=== PATIENT | male | born 1975 | race African-American/Black ===

== ENCOUNTER 2019-07-19 15:58 | Inpatient (IN) | payer BC ==
--- NOTE | 2019-07-19 16:26 | PDOC ---
Attending Attestation - Resident Resident Name: DaveRamon - ED Attending Attestation I have performed the following: I have examined & evaluated the patient, The case was reviewed & discussed with the resident, I agree w/resident's findings & plan, Exceptions are as noted - HPI HPI: 07/19/19 16:41 44y M hx of htn, hl, presents with a complaint of 3 days of worsening shortness of breath, orthopnea. Patient states that possibly 2 hours ago he is playing on his keyboard and developed shortness of breath and diaphoresis. Symptoms then resolved there was no associated chest pain. Patient also endorses feeling a little lightheaded at the time. Patient states that recently he has had been having more episodes and instances of shortness of breath with exertion. Patient states that he has stopped taking his medications for approximately 1 year as he was feeling okay. Patient denies any drug use, alcohol use. PMD:Dr. Marin No known cardiac history GENERAL: The patient is awake, alert, and fully oriented, Nontoxic - in no acute distress. HEAD: Normocephalic, atraumatic. EYES: extraocular movements intact, sclera anicteric, conjunctiva clear. ENT: Normal voice, Moist mucous membranes. NECK: Normal range of motion, supple LUNGS: Breath sounds equal, clear to auscultation bilaterally. No wheezes, no rhonchi, no rales. HEART: Regular rate and rhythm, normal S1 and S2 without murmur, rub or gallop. ABDOMEN: Soft, nontender, No guarding, no rebound. No CVA tenderness EXTREMITIES: Normal range of motion, no edema. NEUROLOGICAL: No facial assymetry, Normal speech, Moving all 4 extremities spontaneously and symmetrically PSYCH: Normal mood, normal affect. SKIN: Warm, Dry, normal turgor, Differential for the patient's symptoms includes CHF, consider ACS The patient's initial [id number] [address] elevations in V1 and V2, as well as ST depressions in V5 V6 and V2 -consider possible STEMI versus LV strain pattern , case was discussed with interventional cardiology at the [facility] if you are agreed this is likely a strain pattern. Will obtain a blood work, chest x-ray patient was placed on cardiac catheterization technologist Patient was given 20 mg of labetalol for blood pressure control Will reassess, anticipate admission for evaluation and work-up of hypertensive emergency - Physicial Exam PE: 07/19/19 17:39 see above - Critical Care Time Total Critical Care Time: 35 Critical Care Statement: The care of this patient involved high complexity decision making to prevent further life threatening deterioration of the patient 's condition and/or to evaluate & treat vital organ system(s) failure or risk of failure. - Medical Decision Making 07/19/19 17:38 pts abs reviewed bmp elev to 1500 trop at 0.09 cr at 2.0 bp improved to 213/161 will admit for further mangement of hypertensive emergency 07/19/19 17:57 The patient's chest x-ray noted for cardiomegaly however otherwise unremarkable We will admit the patient for further management Heart Score/ECG Review - ECG Impressions Comment:: 07/19/19 16:58 Twelve-lead EKG was performed and reviewed by me. There is normal sinus rhythm with a normal rate. rate of 112 1mm peter in V2 and V2, std in V5, V6, II No prior ekg for comparison
[2019-07-19] MEDS ORDERED: LABETALOL HCL 5 MG/1 ML (100MG/20 ML VIAL) IVPUSH ONE ×2 (16:28→18:54)
[2019-07-19] MEDS ORDERED: LABETALOL HCL 5 MG/1 ML (200MG/40ML VIAL) IVPB ONE (16:36)
[2019-07-19 16:45] LABS: BASO % 0.6 % (0-2.0); EOS % 1.6 % (0-4.5); HEMATOCRIT 47.7 % (35.4-49); HEMOGLOBIN 15.6 GM/dL (11.7-16.9); LYMPH % 21.2 % (8-40); MCH 27.9 pg (25.7-33.7); MCHC 32.7 g/dl (32.0-35.9); MEAN CELL VOLUME 85.4 fl (80-96); MEAN PLT VOLUME 7.5 fl (7.5-11.1); NEUT % 70.6 % (42.8-82.8); PLATELET COUNT 375 K/MM3 (134-434); RBC 5.59 M/mm3 (4.00-5.60); RDW 16.1 % (11.9-15.9); WHITE BLOOD COUNT 12.2 K/mm3 (4.0-10.0)
--- NOTE | 2019-07-19 16:47 | PDOC ---
History of Present Illness - General Chief Complaint: Shortness of Breath Stated Complaint: SOB Time Seen by Provider: 07/19/19 16:12 History Source: Patient Exam Limitations: No Limitations - History of Present Illness Initial Comments: 07/21/19 12:50 HPI: 44M PMH HTN c/o 3 days of LAWSON and SOB at rest. Worsened acutely yesterday night. Patient is currently asymptomatic. He did feel lightheaded earlier while playing the keyboard; denies palpitations or chest pain at that time. Sx self- resolved. No LOC, head strike. Denies f/c, n/v, cp/palpitations, changes in vision/hearing, lightheadedness/dizziness, headache. Pt has not taken anti-HTN meds for 1 year, has not seen PCP in a year. NKDA Past History - Past Medical History Allergies/Adverse Reactions: Allergies Allergy/AdvReac Type Severity Reaction Status Date / Time Penicillins Allergy Verified 07/21/19 06:13 Home Medications: Ambulatory Orders No Home Medications 0 dose .ROUTE UTDICT 08/28/12 COPD: No HTN: Yes - Psycho Social/Smoking Cessation Hx Smoking Status: No Smoking History: Never smoked Have you smoked in the past 12 months: No Number of Cigarettes Smoked Daily: 0 Hx Alcohol Use: No Drug/Substance Use Hx: No Review of Systems - Review of Systems Able to Perform ROS?: Yes Comments:: 07/21/19 12:50 ROS: CONSTITUTIONAL: Denies F / C HEENT: Denies headache, lightheadedness, dizziness, changes in vision / hearing , diplopia, blurry vision Denies sore throat, rhinorrhea. RESP: Endorses SOB/LAWSON/Orthopnea. Denies cough CARD: Denies chest pain, palpitations GI: Denies N / V / D, abdominal pain : Denies dysuria, frequency SKIN: Denies rashes NEURO: Denies numbness, tingling, weakness Is the patient limited Albanian proficient: No *Physical Exam - Vital Signs Last Vital Signs Temp Pulse Resp BP Pulse Ox 98.1 F 103 H 22 H 267/146 H 96 07/19/19 16:03 07/19/19 16:11 07/19/19 16:11 07/19/19 16:11 07/19/19 16:11 - Physical Exam Comments: 07/21/19 12:50 PE: VS - BP 250s/150 rpt -> 230s/150 GEN: NAD. AAOx3 HEENT: NC/AT. No facial asymmetry. Normal voice. Supple neck w/ FROM. CV: S1/S2, RRR, no m/r/g LUNG: CTAB, no wheezes, crackles, rales, rhonchi. GI: soft, ndnt, +BS, no guarding, no rebound. No masses. EXTREMITIES: 2+ distal pulses. No LE edema. No obvious deformities of all extremities. SKIN: warm, dry, normal turgor PSYCH: normal mood and affect NEURO: Moving all extremities well. ED Treatment Course - LABORATORY CBC & Chemistry Diagram: 07/21/19 06:00 07/21/19 06:00 Medical Decision Making - Critical Care Time Total Critical Care Time (minutes): 35 Critical Care Statement: The care of this patient involved high complexity decision making to prevent further life threatening deterioration of the patient 's condition and/or to evaluate & treat vital organ system(s) failure or risk of failure. - Medical Decision Making 07/19/19 16:40 MDM: 44M c/o lawson/sob/orthopnea x3 days. Very high pressures. DDx - ACS, CHF, COPD - CBC, CMP, Cardiac, Coags, BNP - EKG - CXR - lower BP 07/19/19 17:59 labs reviewed elevated Cr mildly elevated troponin elevated BNP CXR reviewed by ED team Admit for hypertensive emergency 07/19/19 18:[address] Jung pending placement ICU c/s 07/19/19 19:08 accepted by ICU ADMITTED ICU 07/19/19 22:04 Pt pressure lowered to 190s/120s s/p 20mg labetalol IVPUSH x2 Pressure has been reduced about 20% on IVPUSH medication Pt asymptomatic ED team discussed case w/ ICU team who was amenable to downgrading to Telemetry Plan was communicated to primary team who was amenable Discharge - Discharge Information Problems reviewed: Yes Clinical Impression/Diagnosis: Hypertensive emergency - Admission Yes - Follow up/Referral - Patient Discharge Instructions - Post Discharge Activity
[2019-07-19 16:56] LABS: INR 0.98 (0.83-1.09); PROTHROMBIN TIME (PATIENT) 11.6 SEC (9.7-13.0)
[2019-07-19 17:23] LABS: ALBUMIN 4.2 g/dl (3.4-5.0); BILIRUBIN,TOTAL 0.4 mg/dL (0.2-1); BLOOD UREA NITROGEN 18.2 mg/dL (7-18); CALCIUM 9.3 mg/dL (8.5-10.1); N-TERMINAL BNP 1401.2 pg/ml (5-125); POTASSIUM 3.5 mmol/L (3.5-5.1); TOT PROT 7.5 g/dl (6.4-8.2)
--- NOTE | 2019-07-19 19:27 | HP ---
CHIEF COMPLAINT: SOB PCP: HTN emergency HISTORY OF PRESENT ILLNESS: Mr. Novak is a 44 YOM, with a past medical hx of HTN and HLD, presenting to the ED with SOB and found to be hypertensive to 267/146. He first noticed it 3 days ago when he was having trouble laying flat and sleeping. He states it has been worsening over the past 3 days and that last night he couldn't lay flat at all. He has never experienced symptoms like this before. He states that nothing makes it better and only laying flat makes it worse. He has experienced lightheadedness twice, both time while sitting down, since the SOB began but denies any chest pain, heart palpitations, N/V, abdominal pain, diarrhea, constipation, syncope, headache, swelling of the UE/LE, skin changes, vision changes, changes in urinary frequency or volume. The pt was previously prescribed amlodipine 10 mg plus another BP med the patient cannot recall in addition to atorvastatin 10 mg daily for cholesterol, however the pt has not been back to his PCP in over 2 years and does not think he has taken any of his medications since 2015/ 2016 whenever they ran out. The pt states he has no reason for not visiting the doctor or refilling his medications other than hes just been busy with work. ER course was notable for: (1) EKG with sinus tachycardia and some PVCs, ST elevations in V1, V2, ST depressions V5, V6, ED sent EKG to [facility] cardiology who felt it was indicative of L heart strain. QTc 494 (2) Initial BP 267/146 Labetalol 20 IVpush x2 > BP 204/119 (3) Trop 0.09, BNP 1402.2, CK 446, BUN/Cr 18.2/2.0 Recent Travel: denies PAST MEDICAL HISTORY: HTN, HLD PAST SURGICAL HISTORY: denies Social History: Smoking: denies Alcohol: denies Drugs: denies Fhx: grandmother-stroke Occupation: air crew officer at [employer] , lives with and 2 kids Allergies No Known Allergies Allergy (Verified 07/19/19 16:01) HOME MEDICATIONS: Home Medications Medication Instructions Recorded No Home Medications 0 dose .ROUTE UTDICT 08/28/12 REVIEW OF SYSTEMS CONSTITUTIONAL: Absent: fever, chills, diaphoresis, generalized weakness, malaise, loss of appetite, weight change HEENT: Absent: rhinorrhea, nasal congestion, throat pain, throat swelling, difficulty swallowing, mouth swelling, ear pain, eye pain, visual changes CARDIOVASCULAR: Absent: chest pain, syncope, palpitations, irregular heart rate, lightheadedness , peripheral edema RESPIRATORY: shortness of breath, orthopnea Absent: cough, dyspnea with exertion, wheezing, stridor, hemoptysis GASTROINTESTINAL: Absent: abdominal pain, abdominal distension, nausea, vomiting, diarrhea, constipation, melena, hematochezia GENITOURINARY: Absent: dysuria, frequency, urgency, hesitancy, hematuria, flank pain, genital pain MUSCULOSKELETAL: Absent: myalgia, arthralgia, joint swelling, back pain, neck pain SKIN: Absent: rash, itching, pallor HEMATOLOGIC/IMMUNOLOGIC: Absent: easy bleeding, easy bruising, lymphadenopathy, frequent infections ENDOCRINE: Absent: unexplained weight gain, unexplained weight loss, heat intolerance, cold intolerance NEUROLOGIC: lightheaded Absent: headache, focal weakness or paresthesias, dizziness, unsteady gait, seizure, mental status changes, bladder or bowel incontinence PSYCHIATRIC: Absent: anxiety, depression, suicidal or homicidal ideation, hallucinations. PHYSICAL EXAMINATION Vital Signs - 24 hr 07/19/19 07/19/19 07/19/19 16:03 16:09 16:11 Temperature 98.1 F Pulse Rate 107 H 93 H Pulse Rate [ 103 H Right Radial] Respiratory 22 H 22 H Rate Blood Pressure 260/147 H Blood Pressure 267/146 H [Left Arm] O2 Sat by Pulse 96 99 96 Oximetry (%) 07/19/19 07/19/19 07/19/19 16:42 17:51 18:57 Temperature Pulse Rate Pulse Rate [ 93 H 89 93 H Right Radial] Respiratory 19 17 Rate Blood Pressure Blood Pressure 234/149 H 218/125 H 204/119 H [Left Arm] O2 Sat by Pulse 99 99 Oximetry (%) 07/19/19 19:24 Temperature Pulse Rate Pulse Rate [ 84 Right Radial] Respiratory 16 Rate Blood Pressure Blood Pressure 203/116 H [Left Arm] O2 Sat by Pulse Oximetry (%) GENERAL: Awake, alert, and fully oriented, in no acute distress, obese HEAD: Normal with no signs of trauma. EYES: Pupils equal, round and reactive to light, extraocular movements intact, sclera anicteric, conjunctiva clear. No lid lag. mild proptosis EARS, NOSE, THROAT: Ears normal, nares patent, oropharynx clear without exudates. Moist mucous membranes. NECK: Normal range of motion, supple without lymphadenopathy, JVD, or masses. LUNGS: Breath sounds equal, clear to auscultation bilaterally. No wheezes, and no crackles. No accessory muscle use. HEART: Regular rhythm, tachycardic, normal S1 and S2 without murmur, rub or gallop. ABDOMEN: Soft, nontender, not distended, normoactive bowel sounds, no guarding, no rebound, no masses. No hepatomegaly or splenomegaly. MUSCULOSKELETAL: Normal range of motion at all joints. No bony deformities or tenderness. No CVA tenderness. UPPER EXTREMITIES: 2+ pulses, warm, well-perfused. No cyanosis. No clubbing. No peripheral edema. LOWER EXTREMITIES: 2+ pulses, warm, well-perfused. No calf tenderness. 1+ peripheral edema. NEUROLOGICAL: Cranial nerves II-XII intact. Normal speech. PSYCHIATRIC: Cooperative. Good eye contact. Appropriate mood and affect. SKIN: Warm, dry, normal turgor, no rashes or lesions noted, normal capillary refill. Laboratory Results - last 24 hr 07/19/19 07/19/19 07/19/19 16:28 16:28 16:28 WBC 12.2 H RBC 5.59 Hgb 15.6 Hct 47.7 MCV 85.4 MCH 27.9 MCHC 32.7 RDW 16.1 H Plt Count 375 MPV 7.5 Absolute Neuts (auto) 8.7 H Neutrophils % 70.6 Lymphocytes % 21.2 Monocytes % 6.0 Eosinophils % 1.6 Basophils % 0.6 Nucleated RBC % 0 PT with INR INR Sodium 137 Potassium 3.5 Chloride 100 Carbon Dioxide 32 Anion Gap 5 L BUN 18.2 H Creatinine 2.0 H Est GFR (CKD-EPI)AfAm 45.37 Est GFR (CKD-EPI)NonAf 39.14 Random Glucose 102 Calcium 9.3 Total Bilirubin 0.4 AST 26 ALT 38 Alkaline Phosphatase 71 Creatine Kinase 446 H Creatine Kinase Index 0.7 CK-MB (CK-2) 3.2 Troponin I 0.09 H B-Natriuretic Peptide 1401.2 H Total Protein 7.5 Albumin 4.2 07/19/19 16:28 WBC RBC Hgb Hct MCV MCH MCHC RDW Plt Count MPV Absolute Neuts (auto) Neutrophils % Lymphocytes % Monocytes % Eosinophils % Basophils % Nucleated RBC % PT with INR 11.60 INR 0.98 Sodium Potassium Chloride Carbon Dioxide Anion Gap BUN Creatinine Est GFR (CKD-EPI)AfAm Est GFR (CKD-EPI)NonAf Random Glucose Calcium Total Bilirubin AST ALT Alkaline Phosphatase Creatine Kinase Creatine Kinase Index CK-MB (CK-2) Troponin I B-Natriuretic Peptide Total Protein Albumin ASSESSMENT/PLAN: Mr. Novak is a 44 YOM, with a past medical hx of HTN and HLD, presenting to the ED with SOB and found to be Hypertensive to 267/146 with evidence of renal dysfunction. # HTN emergency- pt with known hx of HTN and HLD not taking any of his home medications. EKG with evidence of L heart strain. Unclear as to what caused the pt to have HTN emergency. Pt has multiple risk factors for essential HTN including obesity, race, high Na diet (pt reports he eats fast food regularly) and low physical activity (pt denies doing any exercise). The pt denies having any other medical conditions however on physical exam he was found to be obese which could be a risk factor for sleep apnea , he was also noted to have some proptosis (which may be normal) but could indicate thyroid disease. These could be causes of secondary HTN leading to hypertensive emergency. - Nitro drip to reduce after-load given the pt has evidence of L heart strain on EKG and is endorsing orthopnea, goal to decrease BP by 25% in first 6h - UA - Renal u/s - Echo - trend troponins > if increasing or elevated then consider R/O ACS - urine lytes - counseled pt on importance of taking anti-HTN medications, HLD medications, and following up with appropriate doctors. # THEO- may be 2/2 severe HTN, no baseline for comparison - Nitro drip for BP control - f/u UA for evidence of microscopic hematuria - avoid renal toxins - renal lytes - renal u/s - accurate Is/Os - daily weights # Elevated troponin 0.09- most likely 2/2 severe HTN, pt without any CP or EKG findings suspicious for ACS at this time. # mild leukocytosis- pt is otherwise afebrile without evidence of infection at this time - trend CBC - monitor off ABX for now # FEN - PO fluids - replete PRN - Na controlled diet # PPx - Heparin 5000u SQ TID # Dispo - admit to ICU for BP management, likely can be downgraded tomorrow. Visit type - Emergency Visit Emergency Visit: Yes ED Registration Date: 07/19/19 Care time: The patient presented to the Emergency Department on the above date and was hospitalized for further evaluation of their emergent condition. - New Patient This patient is new to me today: Yes Date on this admission: 07/20/19 - Critical Care Critical Care patient: No ATTENDING PHYSICIAN STATEMENT I saw and evaluated the patient. I reviewed the resident's note and discussed the case with the resident. I agree with the resident's findings and plan as documented. SUBJECTIVE: OBJECTIVE: ASSESSMENT AND PLAN:
[2019-07-19] MEDS ORDERED: CHLORHEXIDINE GLUCONATE 4% CLEANSER FOR DECOLONIZATION TP SCH (22:00)
[2019-07-19] MEDS ORDERED: LABETALOL HCL 200 MG TABLET (FP) PO ONE (22:05)
[2019-07-19] MEDS ORDERED: NITROGLYCERIN 25MG/D5W 250ML 25 MG/250 ML ML IVPB SCH (23:45)
--- NOTE | 2019-07-20 04:28 | PN ---
Teaching Attending Note Name of Resident: Verona Trejo ATTENDING PHYSICIAN STATEMENT I saw and evaluated the patient. I reviewed the resident's note and discussed the case with the resident. I agree with the resident's findings and plan as documented. SUBJECTIVE: 44-year-old -Filipino man with a history of uncontrolled hypertension, off antihypertensive meds for the past 2 years because he has not been following with his PCP, presented to hospital complaining of shortness of breath for the past 3 days. Reports mild headache as well denied any chest pain , palpitations, vision changes. No changes in his urine habits reported. Upon initial presentation to emergency room was found to have a blood pressure of 260 /147. In the ER he was given 2 pushes of labetalol 20 mg IV and then given labetalol 200 mg p.o. was still having severe hypertension with systolic reading over 200 and so was started on nitro drip. OBJECTIVE: Last Vital Signs Temp Pulse Resp BP Pulse Ox 98.0 F 81 18 163/98 96 07/19/19 22:31 07/20/19 03:00 07/20/19 03:00 07/20/19 03:00 07/20/19 03:00 GENERAL: Well developed, well nourished. Obese HEENT: Normocephalic, atraumatic. PERRLA, EOMI. No conjunctival pallor. Sclera are non- icteric. Moist mucous membranes. Oropharynx is clear. NECK: Supple. Full ROM. No JVD. Carotid pulses 2+ and symmetric, without bruits. No thyromegaly. No lymphadenopathy. CARDIOVASCULAR: Regular rate and rhythm. No murmurs, rubs, or gallops. Distal pulses are 2+ and symmetric. PULMONARY: No evidence of respiratory distress. Lungs clear to auscultation bilaterally. No wheezing, rales or rhonchi. ABDOMINAL: Soft. Non-tender. Non-distended. No rebound or guarding. No organomegaly. Normoactive bowel sounds. MUSCULOSKELETAL Normal range of motion at all joints. No bony deformities or tenderness. No CVA tenderness. EXTREMITIES: 1+ pedal edema bilaterally in lower extremities SKIN: Warm and dry. Normal capillary refill. No rashes. No jaundice. PSYCHIATRIC: Cooperative. Good eye contact. Appropriate mood and affect. Abnormal Lab Results 07/19/19 07/19/19 07/19/19 16:28 16:28 16:28 WBC 12.2 H RDW 16.1 H Absolute Neuts (auto) 8.7 H Anion Gap 5 L BUN 18.2 H Creatinine 2.0 H Creatine Kinase 446 H Troponin I 0.09 H B-Natriuretic Peptide 1401.2 H Imaging reviewed ASSESSMENT AND PLAN: Critically ill 44-year-old man with hypertensive emergency with evidence of endorgan damage as creatinine is 2.0 and suggestive of a KI. No baseline creatinine value for comparison. Mild troponin leak likely secondary to severe hypertension but no chest pain and do not suspect ACS at this time chest x-ray was negative for any infiltrates and patient was saturating well on room air. Admit to ICU Nitroglycerin drip 2 g sodium diet Goal is to decrease blood pressure by 25% in first 6 hours Trend troponin If significant elevation in troponin would consider ACS Avoid renal toxins Renal lites UA Renal ultrasound Accurate I's and O's Daily weights Transthoracic echo Counseled patient on importance of taking antihypertensive medications at home and salt restriction Heparin subcutaneously for DVT prophylaxis #Leukocytosisno evidence of infection at this time Would trend CBC Monitor off antibiotics
[2019-07-20 05:55] LABS: EPI CELLS 0.6 /HPF (0-5/HPF); HYALINE CASTS 1 /lpf (0-8); URINE APPEARANCE CLEAR; URINE BACTERIA 0.2 /hpf (NEGATIVE); URINE BILIRUBIN NEGATIVE (NEGATIVE); URINE COLOR YELLOW; URINE GLUCOSE (UA) NEGATIVE (NEGATIVE); URINE KETONE NEGATIVE (NEGATIVE); URINE LEUK ESTERASE NEGATIVE (NEGATIVE); URINE NITRITE NEGATIVE (NEGATIVE); URINE PROTEIN 4+ (NEGATIVE); URINE RBC 2 /hpf (0-4); URINE UROBILINOGEN 0.2 mg/dL (0.2-1.0); URINE WBC 0 /hpf (0-5)
[2019-07-20 06:05] LABS: BASO % 0.7 % (0-2.0); EOS % 2.1 % (0-4.5); HEMATOCRIT 39.9 % (35.4-49); HEMOGLOBIN 13.3 GM/dL (11.7-16.9); LYMPH % 19.5 % (8-40); MCH 28.3 pg (25.7-33.7); MCHC 33.4 g/dl (32.0-35.9); MEAN CELL VOLUME 84.7 fl (80-96); MEAN PLT VOLUME 7.4 fl (7.5-11.1); MONO % 5.9 % (3.8-10.2); NEUT % 71.8 % (42.8-82.8); PLATELET COUNT 327 K/MM3 (134-434); RBC 4.71 M/mm3 (4.00-5.60); RDW 15.9 % (11.9-15.9); WHITE BLOOD COUNT 9.2 K/mm3 (4.0-10.0)
[2019-07-20] MEDS ORDERED: HEPARIN NA (PORCINE) 5,000 UNITS/ML 1ML VIAL ONE ×2 (06:37→14:08)
[2019-07-20 06:38] LABS: ALBUMIN 3.4 g/dl (3.4-5.0); BILIRUBIN,TOTAL 0.6 mg/dL (0.2-1); BLOOD UREA NITROGEN 18.6 mg/dL (7-18); CALCIUM 8.9 mg/dL (8.5-10.1); MAGNESIUM 2.2 mg/dL (1.8-2.4); PHOSPHOROUS 4.4 mg/dL (2.5-4.9); POTASSIUM 3.6 mmol/L (3.5-5.1); TOT PROT 6.1 g/dl (6.4-8.2)
[2019-07-20] MEDS: MUPIROCIN 2% TOPICAL OINTMENT FOR DECOLONIZATION NS SCH ×2 (06:42→10:12)
[2019-07-20] MEDS: HEPARIN NA (PORCINE) 5,000 UNITS/ML 1ML VIAL SQ SCH ×3 (06:43→23:03)
[2019-07-20] MEDS ORDERED: LABETALOL HCL 200 MG TABLET (FP) PO SCH (10:00)
--- NOTE | 2019-07-20 10:06 | EKG ---
Test Reason : Blood Pressure : / mmHG Vent. Rate : 108 BPM Atrial Rate : 108 BPM P-R Int : 142 ms QRS Dur : 092 ms QT Int : 368 ms P-R-T Axes : 043 008 230 degrees QTc Int : 493 ms SINUS TACHYCARDIA POSSIBLE LEFT ATRIAL ENLARGEMENT ABNORMAL ECG NO PREVIOUS ECGS AVAILABLE Confirmed by MYRTLE MARSHALL MD ([id number]) on 07/20/2019 10:05:57 AM Referred By: Confirmed By:MYRTLE MARSHALL MD
--- NOTE | 2019-07-20 10:06 | EKG ---
Test Reason : Blood Pressure : / mmHG Vent. Rate : 112 BPM Atrial Rate : 112 BPM P-R Int : 138 ms QRS Dur : 096 ms QT Int : 362 ms P-R-T Axes : 055 022 242 degrees QTc Int : 494 ms SINUS TACHYCARDIA WITH OCCASIONAL PREMATURE ATRIAL COMPLEXES BIATRIAL ENLARGEMENT ABNORMAL ECG NO PREVIOUS ECGS AVAILABLE Confirmed by JOANNA FINE, MYRTLE ([id number]) on 07/20/2019 10:06:19 AM Referred By: Confirmed By:MYRTLE MARSHALL MD
[2019-07-20] MEDS ORDERED: LABETALOL HCL 5 MG/1 ML (100MG/20 ML VIAL) IVPUSH PRN ×2 (10:23→20:54)
--- NOTE | 2019-07-20 10:27 | CON.CARD ---
Consult Consult Specialty:: Cardiology Referred by:: Dr. Darnell Reason for Consultation:: Cardiac evaluation - History of Present Illness Chief Complaint: Shortness of breath History of Present Illness: Patient is a 44 year old male with underlying history of HTN and hypercholesterolemia who presented to ED with increasing shortness of breath for the past few days and was found to be hypertensive to 267/146 mmHg. He denies chest pain or palpitations. He denies paroxysmal nocturnal dyspnea or orthopnea. He denies fever or chills. He denies nausea, vomiting, diarrhea or abdominal pain. He denies headache or lightheadedness. He had stopped taking blood pressure medication and statin 2 years ago. He has been noncompliant with MD follow up. He is an [employer] officer. - History Source History Provided By: Patient, Medical Record Limitations to Obtaining History: No Limitations - Past Medical History Cardio/Vascular: Yes: HTN, Hyperlipdemia Pulmonary: No: Asthma, COPD Endocrine: No: Diabetes Mellitus - Past Surgical History Past Surgical History: Yes: None - Alcohol/Substance Use Hx Alcohol Use: No - Smoking History Smoking history: Never smoked Have you smoked in the past 12 months: No Aproximately how many cigarettes per day: 0 Home Medications - Allergies Allergies/Adverse Reactions: Allergies Allergy/AdvReac Type Severity Reaction Status Date / Time No Known Allergies Allergy Verified 07/19/19 16:01 - Home Medications Home Medications: Ambulatory Orders No Home Medications 0 dose .ROUTE UTDICT 08/28/12 Family Medical History Family Hx Cardiac Disorders: Mother (HTN) Review of Systems - Review of Systems Constitutional: denies: Chills, Fever Cardiovascular: reports: Shortness of Breath. denies: Chest Pain, Palpitations Respiratory: reports: SOB, SOB on Exertion. denies: Cough, Hemoptysis, Orthopnea, PND, Wheezing Gastrointestinal: denies: Abdominal Pain, Constipation, Diarrhea, Melena, Nausea , Rectal Bleeding, Vomiting Genitourinary: denies: Dysuria, Hematuria Musculoskeletal: denies: Back Pain, Joint Pain Neurological: denies: Dizziness, Headache, Seizure, Syncope Vital Signs: Vital Signs Temperature 98.1 F 07/20/19 07:12 Pulse Rate 83 07/20/19 10:00 Respiratory Rate 20 07/20/19 10:00 Blood Pressure 175/99 H 07/20/19 10:00 O2 Sat by Pulse Oximetry (%) 98 07/20/19 10:00 Eyes: Yes: PERRL HENT: Yes: Atraumatic Neck: Yes: Supple Respiratory: Yes: CTA Bilaterally Gastrointestinal: Yes: Normal Bowel Sounds, Soft. No: Tenderness Cardiovascular: Yes: Regular Rate and Rhythm JVD: No PMI: Non-Displaced Heart Sounds: Yes: S1, S2 Murmur: No: Systolic Murmur, Diastolic Murmur Edema: No - Other Data Labs, Other Data: CBC, BMP 07/20/19 05:30 07/20/19 05:30 INR, PTT INR 0.98 (0.83-1.09) 07/19/19 16:28 Troponin, BNP 07/19/19 07/19/19 07/20/19 16:28 16:28 05:30 Troponin I 0.09 H 0.06 H B-Natriuretic Peptide 1401.2 H Laboratory Results - last 24 hr 07/19/19 07/19/19 07/19/19 16:28 16:28 16:28 WBC 12.2 H RBC 5.59 Hgb 15.6 Hct 47.7 MCV 85.4 MCH 27.9 MCHC 32.7 RDW 16.1 H Plt Count 375 MPV 7.5 Absolute Neuts (auto) 8.7 H Neutrophils % 70.6 Lymphocytes % 21.2 Monocytes % 6.0 Eosinophils % 1.6 Basophils % 0.6 Nucleated RBC % 0 PT with INR INR Sodium 137 Potassium 3.5 Chloride 100 Carbon Dioxide 32 Anion Gap 5 L BUN 18.2 H Creatinine 2.0 H Est GFR (CKD-EPI)AfAm 45.37 Est GFR (CKD-EPI)NonAf 39.14 Random Glucose 102 Hemoglobin A1c % Serum Osmolality Calcium 9.3 Phosphorus Magnesium Total Bilirubin 0.4 AST 26 ALT 38 Alkaline Phosphatase 71 Creatine Kinase 446 H Creatine Kinase Index 0.7 CK-MB (CK-2) 3.2 Troponin I 0.09 H B-Natriuretic Peptide 1401.2 H Total Protein 7.5 Albumin 4.2 TSH Urine Color Urine Appearance Urine pH Ur Specific [place] Urine Protein Urine Glucose (UA) Urine Ketones Urine Blood Urine Nitrite Urine Bilirubin Urine Urobilinogen Ur Leukocyte Esterase Urine WBC (Auto) Urine RBC (Auto) Urine Casts (Auto) U Epithel Cells (Auto) Urine Bacteria (Auto) Urine Osmolality Ur Random Creatinine Ur Random Sodium Ur Random Potassium Ur Random Chloride 11/17/19 11/18/19 11/18/19 16:28 05:30 05:30 WBC 9.2 RBC 4.71 Hgb 13.3 Hct 39.9 D MCV 84.7 MCH 28.3 MCHC 33.4 RDW 15.9 Plt Count 327 MPV 7.4 L Absolute Neuts (auto) 6.6 Neutrophils % 71.8 Lymphocytes % 19.5 Monocytes % 5.9 Eosinophils % 2.1 Basophils % 0.7 Nucleated RBC % 0 PT with INR 11.60 INR 0.98 Sodium 140 Potassium 3.6 Chloride 102 Carbon Dioxide 33 H Anion Gap 5 L BUN 18.6 H Creatinine 2.0 H Est GFR (CKD-EPI)AfAm 45.37 Est GFR (CKD-EPI)NonAf 39.14 Random Glucose 118 H Hemoglobin A1c % Serum Osmolality Calcium 8.9 Phosphorus 4.4 Magnesium 2.2 Total Bilirubin 0.6 AST 21 ALT 34 Alkaline Phosphatase 51 Creatine Kinase Creatine Kinase Index CK-MB (CK-2) Troponin I 0.06 H B-Natriuretic Peptide Total Protein 6.1 L Albumin 3.4 TSH 3.53 Urine Color Urine Appearance Urine pH Ur Specific [place] Urine Protein Urine Glucose (UA) Urine Ketones Urine Blood Urine Nitrite Urine Bilirubin Urine Urobilinogen Ur Leukocyte Esterase Urine WBC (Auto) Urine RBC (Auto) Urine Casts (Auto) U Epithel Cells (Auto) Urine Bacteria (Auto) Urine Osmolality Ur Random Creatinine Ur Random Sodium Ur Random Potassium Ur Random Chloride 07/20/19 07/20/19 07/20/19 05:40 05:40 05:40 WBC RBC Hgb Hct MCV MCH MCHC RDW Plt Count MPV Absolute Neuts (auto) Neutrophils % Lymphocytes % Monocytes % Eosinophils % Basophils % Nucleated RBC % PT with INR INR Sodium Potassium Chloride Carbon Dioxide Anion Gap BUN Creatinine Est GFR (CKD-EPI)AfAm Est GFR (CKD-EPI)NonAf Random Glucose Hemoglobin A1c % Serum Osmolality 296 Calcium Phosphorus Magnesium Total Bilirubin AST ALT Alkaline Phosphatase Creatine Kinase Creatine Kinase Index CK-MB (CK-2) Troponin I B-Natriuretic Peptide Total Protein Albumin TSH Urine Color Yellow Urine Appearance Clear Urine pH 6.0 Ur Specific [place] 1.020 Urine Protein 4+ H Urine Glucose (UA) Negative Urine Ketones Negative Urine Blood Negative Urine Nitrite Negative Urine Bilirubin Negative Urine Urobilinogen 0.2 Ur Leukocyte Esterase Negative Urine WBC (Auto) 0 Urine RBC (Auto) 2 Urine Casts (Auto) 1 U Epithel Cells (Auto) 0.6 Urine Bacteria (Auto) 0.2 Urine Osmolality 556 Ur Random Creatinine Ur Random Sodium Ur Random Potassium Ur Random Chloride Sinus tachycardia with biatrial enlargement Echo: Pending Imaging - Results Chest X-ray: Report Reviewed (Unremarkable) EKG: Report Reviewed Problem List - Problems (1) Hypertensive emergency Code(s): I16.1 - HYPERTENSIVE EMERGENCY (2) Shortness of breath Code(s): R06.02 - SHORTNESS OF BREATH (3) Hypercholesterolemia Code(s): E78.00 - PURE HYPERCHOLESTEROLEMIA, UNSPECIFIED (4) Noncompliance Code(s): Z91.19 - PATIENT'S NONCOMPLIANCE W OTH MEDICAL TREATMENT AND REGIMEN Assessment/Plan 1. HTN emergency 2. Hypercholesterolemia 3. Noncompliance 4. Acute on CKD PLAN: 1. Labetalol 200 mg BID or TID uptitrate as needed and as tolerated 2. Continue IV NTG for now 3. Consider Procardia XL if tolerated or other option is to use Hydralazine 4. Echocardiography to assess LV/RV and valvular function 5. Continue Atorvastatin 10 mg QHS and check fasting lipid panel 6. Monitor renal function and electrolytes Further plans are to follow Quique Palacios MD
[2019-07-20] MEDS ORDERED: NIFEdipine E.R 60 MG TABLET (UD) PO SCH (11:00)
[2019-07-20] MEDS ORDERED: NIFEdipine E.R. 30 MG TABLET (FP) ONE (11:04)
--- NOTE | 2019-07-20 11:38 | CONSULT ---
Consultation: REQUESTING PROVIDER: Dr. Darnell CONSULT SERVICE: Nephrology HISTORY OF PRESENT ILLNESS: Patient is a 44 year old male with history of hypertension, hyperlipidemia not on any medications for past two years presents with complaint of shortness of breath, Patient endorses acute onset of orthopnea, paroxysmal nocturnal dyspnea ongoing for past three days. Patient states these symptoms have not occurred in the past. Denies palliative features. Denies recent sick contacts, subjective fevers, chills, syncope, chest pain, palpitations, abdominal pain, nausea, vomiting. he denies any prior history of asthma/ COPD, does not use any inhalers / bronchodilators. Denies using home oxygen. Denies recent diuretics, antibiotics, MADAI/ ARBs, or NSAIDs. Patient admits that he has not followed up with a primary care physician for the past two years. In ED patient was found to be hypertensive to 260s/ 140s; started on Nitro drip. Chest radiograph without infiltrate, or congestive changes. BUN/ Cr 18.6/ 2.0 without prior available values. Past medical history: hypertension, hyperlipidemia Past surgical history: denies Family history Mother: hypertension Father: denies Medications: formerly took amlodipine, atorvastatin, however no recent medications Allergies: NKDA Social: Lives with adn children. 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 Patient denies smoking cigarettes, alcohol consumption, illicit drug use. REVIEW OF SYSTEMS: CONSTITUTIONAL: Absent: fever, chills, diaphoresis, generalized weakness, malaise, loss of appetite, weight change HEENT: Absent: rhinorrhea, nasal congestion, throat pain, throat swelling, difficulty swallowing, mouth swelling, ear pain, eye pain, visual changes CARDIOVASCULAR: Absent: chest pain, syncope, palpitations, irregular heart rate, lightheadedness , peripheral edema RESPIRATORY: Admits: shortness of breath, orthopnea. Absent: cough, dyspnea with exertion, wheezing, stridor, hemoptysis GASTROINTESTINAL: Absent: abdominal pain, abdominal distension, nausea, vomiting, diarrhea, constipation, melena, hematochezia GENITOURINARY: Absent: dysuria, frequency, urgency, hesitancy, hematuria, flank pain, genital pain MUSCULOSKELETAL: Absent: myalgia, arthralgia, joint swelling, back pain, neck pain SKIN: Absent: rash, itching, pallor HEMATOLOGIC/IMMUNOLOGIC: Absent: easy bleeding, easy bruising, lymphadenopathy, frequent infections ENDOCRINE: Absent: unexplained weight gain, unexplained weight loss, heat intolerance, cold intolerance NEUROLOGIC: Absent: headache, focal weakness or paresthesias, dizziness, unsteady gait, seizure, mental status changes, bladder or bowel incontinence PSYCHIATRIC: Absent: anxiety, depression, suicidal or homicidal ideation, hallucinations. PHYSICAL EXAMINATION Vital Signs - 24 hr 07/19/19 07/19/19 07/19/19 16:03 16:09 16:11 Temperature 98.1 F Pulse Rate 107 H 93 H Pulse Rate [ 103 H Right Radial] Respiratory 22 H 22 H Rate Blood Pressure 260/147 H Blood Pressure 267/146 H [Left Arm] O2 Sat by Pulse 96 99 96 Oximetry (%) 07/19/19 07/19/19 07/19/19 16:42 17:51 18:57 Temperature Pulse Rate Pulse Rate [ 93 H 89 93 H Right Radial] Respiratory 19 17 Rate Blood Pressure Blood Pressure 234/149 H 218/125 H 204/119 H [Left Arm] O2 Sat by Pulse 99 99 Oximetry (%) 07/19/19 07/19/19 07/19/19 19:24 20:44 22:31 Temperature 98.0 F Pulse Rate Pulse Rate [ 84 82 93 H Right Radial] Respiratory 16 20 18 Rate Blood Pressure Blood Pressure 203/116 H 190/125 H 222/146 H [Left Arm] O2 Sat by Pulse 99 96 Oximetry (%) 07/20/19 07/20/19 07/20/19 02:00 03:00 05:49 Temperature Pulse Rate Pulse Rate [ 74 81 89 Right Radial] Respiratory 21 H 18 18 Rate Blood Pressure Blood Pressure 163/100 163/98 174/106 H [Left Arm] O2 Sat by Pulse 96 96 95 Oximetry (%) 07/20/19 07/20/19 07/20/19 07:01 07:05 07:12 Temperature 98.1 F Pulse Rate Pulse Rate [ 84 86 Right Radial] Respiratory 19 Rate Blood Pressure Blood Pressure 154/91 154/94 [Left Arm] O2 Sat by Pulse 98 99 Oximetry (%) 07/20/19 07/20/19 07/20/19 10:00 10:31 11:00 Temperature Pulse Rate Pulse Rate [ 83 78 84 Right Radial] Respiratory 20 26 H 18 Rate Blood Pressure Blood Pressure 175/99 H 168/106 H 160/97 [Left Arm] O2 Sat by Pulse 98 94 L 97 Oximetry (%) GENERAL: Awake, alert, and fully oriented, in no acute distress. HEENT: NC/AT. PERRL, EOMI. Moist mucous membranes. LUNGS: Clear to auscultation bilaterally. No wheezes, and no crackles. No accessory muscle use. HEART: Regular rate and rhythm, normal S1 and S2 without murmur, rub or gallop. ABDOMEN: Soft, nontender, not distended, normoactive bowel sounds, no guarding, no rebound, no masses. No hepatomegaly or splenomegaly. EXTREMITIES: 2+ pulses bilaterally, warm, well-perfused. No peripheral edema. NEUROLOGICAL: Cranial nerves II-XII intact. No gross focal defecits SKIN: Warm, dry. Laboratory Results - last 24 hr 07/19/19 07/19/19 07/19/19 16:28 16:28 16:28 WBC 12.2 H RBC 5.59 Hgb 15.6 Hct 47.7 MCV 85.4 MCH 27.9 MCHC 32.7 RDW 16.1 H Plt Count 375 MPV 7.5 Absolute Neuts (auto) 8.7 H Neutrophils % 70.6 Lymphocytes % 21.2 Monocytes % 6.0 Eosinophils % 1.6 Basophils % 0.6 Nucleated RBC % 0 PT with INR INR Sodium 137 Potassium 3.5 Chloride 100 Carbon Dioxide 32 Anion Gap 5 L BUN 18.2 H Creatinine 2.0 H Est GFR (CKD-EPI)AfAm 45.37 Est GFR (CKD-EPI)NonAf 39.14 Random Glucose 102 Hemoglobin A1c % Serum Osmolality Calcium 9.3 Phosphorus Magnesium Total Bilirubin 0.4 AST 26 ALT 38 Alkaline Phosphatase 71 Creatine Kinase 446 H Creatine Kinase Index 0.7 CK-MB (CK-2) 3.2 Troponin I 0.09 H B-Natriuretic Peptide 1401.2 H Total Protein 7.5 Albumin 4.2 TSH Urine Color Urine Appearance Urine pH Ur Specific [place] Urine Protein Urine Glucose (UA) Urine Ketones Urine Blood Urine Nitrite Urine Bilirubin Urine Urobilinogen Ur Leukocyte Esterase Urine WBC (Auto) Urine RBC (Auto) Urine Casts (Auto) U Epithel Cells (Auto) Urine Bacteria (Auto) Urine Osmolality Ur Random Creatinine Ur Random Sodium Ur Random Potassium Ur Random Chloride 07/19/19 07/20/19 07/20/19 16:28 05:30 05:30 WBC 9.2 RBC 4.71 Hgb 13.3 Hct 39.9 D MCV 84.7 MCH 28.3 MCHC 33.4 RDW 15.9 Plt Count 327 MPV 7.4 L Absolute Neuts (auto) 6.6 Neutrophils % 71.8 Lymphocytes % 19.5 Monocytes % 5.9 Eosinophils % 2.1 Basophils % 0.7 Nucleated RBC % 0 PT with INR 11.60 INR 0.98 Sodium 140 Potassium 3.6 Chloride 102 Carbon Dioxide 33 H Anion Gap 5 L BUN 18.6 H Creatinine 2.0 H Est GFR (CKD-EPI)AfAm 45.37 Est GFR (CKD-EPI)NonAf 39.14 Random Glucose 118 H Hemoglobin A1c % Serum Osmolality Calcium 8.9 Phosphorus 4.4 Magnesium 2.2 Total Bilirubin 0.6 AST 21 ALT 34 Alkaline Phosphatase 51 Creatine Kinase Creatine Kinase Index CK-MB (CK-2) Troponin I 0.06 H B-Natriuretic Peptide Total Protein 6.1 L Albumin 3.4 TSH 3.53 Urine Color Urine Appearance Urine pH Ur Specific [place] Urine Protein Urine Glucose (UA) Urine Ketones Urine Blood Urine Nitrite Urine Bilirubin Urine Urobilinogen Ur Leukocyte Esterase Urine WBC (Auto) Urine RBC (Auto) Urine Casts (Auto) U Epithel Cells (Auto) Urine Bacteria (Auto) Urine Osmolality Ur Random Creatinine Ur Random Sodium Ur Random Potassium Ur Random Chloride 07/20/19 07/20/19 07/20/19 05:30 05:40 05:40 WBC RBC Hgb Hct MCV MCH MCHC RDW Plt Count MPV Absolute Neuts (auto) Neutrophils % Lymphocytes % Monocytes % Eosinophils % Basophils % Nucleated RBC % PT with INR INR Sodium Potassium Chloride Carbon Dioxide Anion Gap BUN Creatinine Est GFR (CKD-EPI)AfAm Est GFR (CKD-EPI)NonAf Random Glucose Hemoglobin A1c % 6.0 Serum Osmolality Calcium Phosphorus Magnesium Total Bilirubin AST ALT Alkaline Phosphatase Creatine Kinase Creatine Kinase Index CK-MB (CK-2) Troponin I B-Natriuretic Peptide Total Protein Albumin TSH Urine Color Urine Appearance Urine pH Ur Specific [place] Urine Protein Urine Glucose (UA) Urine Ketones Urine Blood Urine Nitrite Urine Bilirubin Urine Urobilinogen Ur Leukocyte Esterase Urine WBC (Auto) Urine RBC (Auto) Urine Casts (Auto) U Epithel Cells (Auto) Urine Bacteria (Auto) Urine Osmolality Ur Random Creatinine 181.0 H Ur Random Sodium 59 Ur Random Potassium 52.0 Ur Random Chloride 68 L 07/20/19 07/20/19 07/20/19 05:40 05:40 05:40 WBC RBC Hgb Hct MCV MCH MCHC RDW Plt Count MPV Absolute Neuts (auto) Neutrophils % Lymphocytes % Monocytes % Eosinophils % Basophils % Nucleated RBC % PT with INR INR Sodium Potassium Chloride Carbon Dioxide Anion Gap BUN Creatinine Est GFR (CKD-EPI)AfAm Est GFR (CKD-EPI)NonAf Random Glucose Hemoglobin A1c % Serum Osmolality 296 Calcium Phosphorus Magnesium Total Bilirubin AST ALT Alkaline Phosphatase Creatine Kinase Creatine Kinase Index CK-MB (CK-2) Troponin I B-Natriuretic Peptide Total Protein Albumin TSH Urine Color Yellow Urine Appearance Clear Urine pH 6.0 Ur Specific [place] 1.020 Urine Protein 4+ H Urine Glucose (UA) Negative Urine Ketones Negative Urine Blood Negative Urine Nitrite Negative Urine Bilirubin Negative Urine Urobilinogen 0.2 Ur Leukocyte Esterase Negative Urine WBC (Auto) 0 Urine RBC (Auto) 2 Urine Casts (Auto) 1 U Epithel Cells (Auto) 0.6 Urine Bacteria (Auto) 0.2 Urine Osmolality 556 Ur Random Creatinine Ur Random Sodium Ur Random Potassium Ur Random Chloride Active Medications Generic Name Dose Route Start Last Admin Trade Name Freq PRN Reason Stop Dose Admin Chlorhexidine Gluconate 1 applic 07/19/19 22:00 07/20/19 06:43 Hibiclens For Decolonization - TP Not Given HS [facility] Heparin Sodium (Porcine) 5,000 unit 07/20/19 06:00 07/20/19 06:43 Heparin - SQ 5,000 unit TID [facility] Administration Labetalol HCl 200 mg 07/20/19 10:00 07/20/19 10:12 Normodyne - PO 200 mg BID ANABELLA Administration Labetalol HCl 10 mg 07/20/19 10:23 Normodyne Injection - IVPUSH Q4H PRN HYPERTENSION Mupirocin 1 applic 07/19/19 22:00 07/20/19 10:12 Bactroban Ointment (For Decolonization) - NS 07/24/19 21:59 Not Given BID [facility] Nifedipine 60 mg 07/20/19 11:00 Procardia Xl - PO DAILY [facility] ASSESSMENT/PLAN: Patient is a 44 year old male with history of hypertension, hyperlipidemia not on any medications for past two years presents with complaint of shortness of breath ongoing for past three days. Hypertensive emergency -Blood pressure decreasing since initiation of Nitro drip. Switched to Labetalol, Nifedipine. -Close monitoring of BP to prevent rebound hypertension. -Troponinemia likely demand, secondary to hypertension. Trend to peak. Cardiolgy recommendations appreciated. Acute kidney injury (on CKD) -THEO likely secondary to poorly controlled blood pressure, in setting of medication and BP noncompliance. -Will obtain records from patient primary care provider to clarify baseline renal function. -Follow renal US -Urine electrolytes to calculate FeNa, protein: creatinine. Disposition: We will continue to follow the patient. Thank you for this consultative opportunity. Visit type - Emergency Visit Emergency Visit: Yes ED Registration Date: 07/19/19 Care time: The patient presented to the Emergency Department on the above date and was hospitalized for further evaluation of their emergent condition. - New Patient This patient is new to me today: Yes Date on this admission: 07/20/19 - Critical Care Critical Care patient: No ATTENDING PHYSICIAN STATEMENT I saw and evaluated the patient. I reviewed the resident's note and discussed the case with the resident. I agree with the resident's findings and plan as documented. SUBJECTIVE: OBJECTIVE: ASSESSMENT AND PLAN:
--- NOTE | 2019-07-20 13:48 | CONSULT ---
Consultation: REQUESTING PROVIDER: Dr. Darnell CONSULT REQUEST: We have been asked to medically evaluate this patient for Hypertensive Emergency. HISTORY OF PRESENT ILLNESS: Pt. is a 44 y.o. M w/ PMHx. of HTN and HLD presents with 3 days of worsening shortness of breath. Pt. states that the shortness of breath happens at day and at night, and that he was unable to lie flat. Pt. states that he was told in the past that he had high blood pressure and was started on medications that he does not recall now. Per chart review these medications were Norvasc and Atorvastatin. Pt. states that the last time he saw his PCP was 2 years ago and that he has not other follow up since. Pt. endorses family history of HTN but denies any other chronic medical conditions. Pt. denies any surgeries in the past. Pt. endorses headache that started after starting a medication here in the ER and was told that it was a potential side effect of the medication. Pt. denies any chest pain, blurry vision, abdominal pain or numbness tingling in the extremities. REVIEW OF SYSTEMS: As above PHYSICAL EXAMINATION Vital Signs - 24 hr 07/19/19 07/19/19 07/19/19 16:03 16:09 16:11 Temperature 98.1 F Pulse Rate 107 H 93 H Pulse Rate [ 103 H Right Radial] Respiratory 22 H 22 H Rate Blood Pressure 260/147 H Blood Pressure 267/146 H [Left Arm] O2 Sat by Pulse 96 99 96 Oximetry (%) 07/19/19 07/19/19 07/19/19 16:42 17:51 18:57 Temperature Pulse Rate Pulse Rate [ 93 H 89 93 H Right Radial] Respiratory 19 17 Rate Blood Pressure Blood Pressure 234/149 H 218/125 H 204/119 H [Left Arm] O2 Sat by Pulse 99 99 Oximetry (%) 07/19/19 07/19/19 07/19/19 19:24 20:44 22:31 Temperature 98.0 F Pulse Rate Pulse Rate [ 84 82 93 H Right Radial] Respiratory 16 20 18 Rate Blood Pressure Blood Pressure 203/116 H 190/125 H 222/146 H [Left Arm] O2 Sat by Pulse 99 96 Oximetry (%) 07/20/19 07/20/19 07/20/19 02:00 03:00 05:49 Temperature Pulse Rate Pulse Rate [ 74 81 89 Right Radial] Respiratory 21 H 18 18 Rate Blood Pressure Blood Pressure 163/100 163/98 174/106 H [Left Arm] O2 Sat by Pulse 96 96 95 Oximetry (%) 07/20/19 07/20/19 07/20/19 07:01 07:05 07:12 Temperature 98.1 F Pulse Rate Pulse Rate [ 84 86 Right Radial] Respiratory 19 Rate Blood Pressure Blood Pressure 154/91 154/94 [Left Arm] O2 Sat by Pulse 98 99 Oximetry (%) 07/20/19 07/20/19 07/20/19 07:21 07:25 10:00 Temperature 98.3 F Pulse Rate Pulse Rate [ 84 82 83 Right Radial] Respiratory 20 19 20 Rate Blood Pressure Blood Pressure 157/81 163/92 175/99 H [Left Arm] O2 Sat by Pulse 98 98 98 Oximetry (%) 07/20/19 07/20/19 07/20/19 10:31 11:00 11:30 Temperature Pulse Rate Pulse Rate [ 78 84 87 Right Radial] Respiratory 26 H 18 22 H Rate Blood Pressure Blood Pressure 168/106 H 160/97 177/100 H [Left Arm] O2 Sat by Pulse 94 L 97 97 Oximetry (%) 07/20/19 12:00 Temperature Pulse Rate Pulse Rate [ 91 H Right Radial] Respiratory 26 H Rate Blood Pressure Blood Pressure 156/94 [Left Arm] O2 Sat by Pulse 99 Oximetry (%) GENERAL: Awake, alert, and fully oriented, in no acute distress. HEAD: Normal with no signs of trauma. EYES: Extraocular movements intact, sclera anicteric, conjunctiva clear. EARS, NOSE, THROAT: Ears normal, nares patent, oropharynx clear without exudates. Moist mucous membranes. NECK: Normal range of motion, supple without lymphadenopathy, JVD, or masses. LUNGS: Breath sounds equal, clear to auscultation bilaterally. No wheezes, and no crackles. No accessory muscle use. HEART: Irregular rate and rhythm, normal S1 and S2 without murmur ABDOMEN: Soft, nontender, not distended, obese. MUSCULOSKELETAL: Normal range of motion at all joints. No bony deformities or tenderness. No CVA tenderness. UPPER EXTREMITIES: 2+ radial pulses, warm, well-perfused. No cyanosis. No clubbing. No peripheral edema. LOWER EXTREMITIES: 2+ dorsal pedal pulses, warm, well-perfused. No calf tenderness. Trace edema. NEUROLOGICAL: Cranial nerves II-XII grossly intact. Normal speech. PSYCHIATRIC: Cooperative. Good eye contact. Appropriate mood and affect. SKIN: Warm, dry, normal turgor, no rashes or lesions noted. Laboratory Results - last 24 hr 07/19/19 07/19/19 07/19/19 16:28 16:28 16:28 WBC 12.2 H RBC 5.59 Hgb 15.6 Hct 47.7 MCV 85.4 MCH 27.9 MCHC 32.7 RDW 16.1 H Plt Count 375 MPV 7.5 Absolute Neuts (auto) 8.7 H Neutrophils % 70.6 Lymphocytes % 21.2 Monocytes % 6.0 Eosinophils % 1.6 Basophils % 0.6 Nucleated RBC % 0 PT with INR INR Sodium 137 Potassium 3.5 Chloride 100 Carbon Dioxide 32 Anion Gap 5 L BUN 18.2 H Creatinine 2.0 H Est GFR (CKD-EPI)AfAm 45.37 Est GFR (CKD-EPI)NonAf 39.14 Random Glucose 102 Hemoglobin A1c % Serum Osmolality Calcium 9.3 Phosphorus Magnesium Total Bilirubin 0.4 AST 26 ALT 38 Alkaline Phosphatase 71 Creatine Kinase 446 H Creatine Kinase Index 0.7 CK-MB (CK-2) 3.2 Troponin I 0.09 H B-Natriuretic Peptide 1401.2 H Total Protein 7.5 Albumin 4.2 TSH Urine Color Urine Appearance Urine pH Ur Specific [place] Urine Protein Urine Glucose (UA) Urine Ketones Urine Blood Urine Nitrite Urine Bilirubin Urine Urobilinogen Ur Leukocyte Esterase Urine WBC (Auto) Urine RBC (Auto) Urine Casts (Auto) U Epithel Cells (Auto) Urine Bacteria (Auto) Urine Osmolality Ur Random Creatinine Ur Random Sodium Ur Random Potassium Ur Random Chloride 07/19/19 07/20/19 07/20/19 16:28 05:30 05:30 WBC 9.2 RBC 4.71 Hgb 13.3 Hct 39.9 D MCV 84.7 MCH 28.3 MCHC 33.4 RDW 15.9 Plt Count 327 MPV 7.4 L Absolute Neuts (auto) 6.6 Neutrophils % 71.8 Lymphocytes % 19.5 Monocytes % 5.9 Eosinophils % 2.1 Basophils % 0.7 Nucleated RBC % 0 PT with INR 11.60 INR 0.98 Sodium 140 Potassium 3.6 Chloride 102 Carbon Dioxide 33 H Anion Gap 5 L BUN 18.6 H Creatinine 2.0 H Est GFR (CKD-EPI)AfAm 45.37 Est GFR (CKD-EPI)NonAf 39.14 Random Glucose 118 H Hemoglobin A1c % Serum Osmolality Calcium 8.9 Phosphorus 4.4 Magnesium 2.2 Total Bilirubin 0.6 AST 21 ALT 34 Alkaline Phosphatase 51 Creatine Kinase Creatine Kinase Index CK-MB (CK-2) Troponin I 0.06 H B-Natriuretic Peptide Total Protein 6.1 L Albumin 3.4 TSH 3.53 Urine Color Urine Appearance Urine pH Ur Specific [place] Urine Protein Urine Glucose (UA) Urine Ketones Urine Blood Urine Nitrite Urine Bilirubin Urine Urobilinogen Ur Leukocyte Esterase Urine WBC (Auto) Urine RBC (Auto) Urine Casts (Auto) U Epithel Cells (Auto) Urine Bacteria (Auto) Urine Osmolality Ur Random Creatinine Ur Random Sodium Ur Random Potassium Ur Random Chloride 07/20/19 07/20/19 07/20/19 05:30 05:40 05:40 WBC RBC Hgb Hct MCV MCH MCHC RDW Plt Count MPV Absolute Neuts (auto) Neutrophils % Lymphocytes % Monocytes % Eosinophils % Basophils % Nucleated RBC % PT with INR INR Sodium Potassium Chloride Carbon Dioxide Anion Gap BUN Creatinine Est GFR (CKD-EPI)AfAm Est GFR (CKD-EPI)NonAf Random Glucose Hemoglobin A1c % 6.0 Serum Osmolality Calcium Phosphorus Magnesium Total Bilirubin AST ALT Alkaline Phosphatase Creatine Kinase Creatine Kinase Index CK-MB (CK-2) Troponin I B-Natriuretic Peptide Total Protein Albumin TSH Urine Color Urine Appearance Urine pH Ur Specific [place] Urine Protein Urine Glucose (UA) Urine Ketones Urine Blood Urine Nitrite Urine Bilirubin Urine Urobilinogen Ur Leukocyte Esterase Urine WBC (Auto) Urine RBC (Auto) Urine Casts (Auto) U Epithel Cells (Auto) Urine Bacteria (Auto) Urine Osmolality Ur Random Creatinine 181.0 H Ur Random Sodium 59 Ur Random Potassium 52.0 Ur Random Chloride 68 L 07/20/19 07/20/19 07/20/19 05:40 05:40 05:40 WBC RBC Hgb Hct MCV MCH MCHC RDW Plt Count MPV Absolute Neuts (auto) Neutrophils % Lymphocytes % Monocytes % Eosinophils % Basophils % Nucleated RBC % PT with INR INR Sodium Potassium Chloride Carbon Dioxide Anion Gap BUN Creatinine Est GFR (CKD-EPI)AfAm Est GFR (CKD-EPI)NonAf Random Glucose Hemoglobin A1c % Serum Osmolality 296 Calcium Phosphorus Magnesium Total Bilirubin AST ALT Alkaline Phosphatase Creatine Kinase Creatine Kinase Index CK-MB (CK-2) Troponin I B-Natriuretic Peptide Total Protein Albumin TSH Urine Color Yellow Urine Appearance Clear Urine pH 6.0 Ur Specific [place] 1.020 Urine Protein 4+ H Urine Glucose (UA) Negative Urine Ketones Negative Urine Blood Negative Urine Nitrite Negative Urine Bilirubin Negative Urine Urobilinogen 0.2 Ur Leukocyte Esterase Negative Urine WBC (Auto) 0 Urine RBC (Auto) 2 Urine Casts (Auto) 1 U Epithel Cells (Auto) 0.6 Urine Bacteria (Auto) 0.2 Urine Osmolality 556 Ur Random Creatinine Ur Random Sodium Ur Random Potassium Ur Random Chloride Active Medications Home Medications Medication Instructions Recorded No Home Medications 0 dose .ROUTE UTDICT 08/28/12 Current Medications Chlorhexidine Gluconate (Hibiclens For Decolonization -) 1 applic TP HS [facility] Last Admin: 07/20/19 06:43 Dose: Not Given Heparin Sodium (Porcine) (Heparin -) 5,000 unit SQ TID [facility] Last Admin: 07/20/19 06:43 Dose: 5,000 unit Labetalol HCl (Normodyne -) 200 mg PO BID [facility] Last Admin: 07/20/19 10:12 Dose: 200 mg Labetalol HCl (Normodyne Injection -) 10 mg IVPUSH Q4H PRN PRN Reason: HYPERTENSION Mupirocin (Bactroban Ointment (For Decolonization) -) 1 applic NS BID [facility] Stop: 07/24/19 21:59 Last Admin: 07/20/19 10:12 Dose: Not Given Nifedipine (Procardia Xl -) 60 mg PO DAILY [facility] Last Admin: 07/20/19 11:18 Dose: 60 mg ASSESSMENT/PLAN: Pt. is a 44 y.o. M w/ PMHx. of HTN and HLD presents with 3 days of worsening shortness of breath. #Hypertensive Emergency w/ Shortness of Breath Pt. is s/p Nitro Gtt Cardiology consult appreciated f/u Echo results c/w Procardia 60mg PO Labetalol 200mg BID, can increased to TID per Cardio Suggest switching to Hydralazine IVP 10mg PRN CXR negative for acute pathology #HLD f/u fasting lipid panel restart Atorvastatin pending results Dispo: Telemetry, Please reconsult if Pt. develops worsening shortness of breath requiring supplemental oxygen or if BP is resistant to medications and requires IV drip. Thank you for this consultative opportunity. Visit type - Emergency Visit Emergency Visit: Yes ED Registration Date: 07/19/19 Care time: The patient presented to the Emergency Department on the above date and was hospitalized for further evaluation of their emergent condition. - New Patient This patient is new to me today: Yes Date on this admission: 07/20/19 - Critical Care Critical Care patient: Yes Total Critical Care Time (in minutes): 45 Critical Care Statement: The care of this patient involved high complexity decision making to prevent further life threatening deterioration of the patient 's condition and/or to evaluate & treat vital organ system(s) failure or risk of failure. ATTENDING PHYSICIAN STATEMENT I saw and evaluated the patient. I reviewed the resident's note and discussed the case with the resident. I agree with the resident's findings and plan as documented. SUBJECTIVE: OBJECTIVE: ASSESSMENT AND PLAN:
[2019-07-20] MEDS ORDERED: LABETALOL HCL 5 MG/1 ML (200MG/40ML VIAL) IVPB ONE (14:28)
--- NOTE | 2019-07-20 14:50 | ECHO ---
Name: ROLANDO GARCIA Exam:Adult Echocardiogram Study Date: 07/20/2019 11:29 AM Age: 44 yrs Reason For Study: HTN Height: 73 in Weight: 268 lb BSA: 2.4 m2 MMode/2D Measurements & Calculations IVSd: 1.7 cm Ao root diam: 2.8 cm LVIDd: 4.2 cm LA dimension: 4.1 cm LVIDs: 3.2 cm LVPWd: 1.5 cm EDV(Teich): 78.0 ml LVOT diam: 2.0 cm ESV(Teich): 41.9 ml LAV (MOD-bp): 49.7 ml Doppler Measurements & Calculations MV E max mookie: 81.0 cm/sec Ao V2 max: 148.0 cm/sec MV A max mookie: 67.4 cm/sec Ao max P.8 mmHg MV E/A: 1.2 MV dec time: 0.13 sec DEBORAH(V,D): 1.7 cm2 LV V1 max P.4 mmHg MR max mookie: 323.7 cm/sec LV V1 max: 78.1 cm/sec MR max P.9 mmHg TR max mookie: 259.9 cm/sec PA V2 max: 85.5 cm/sec TR max P.0 mmHg PA max P.9 mmHg Med Peak E' Mookie: 4.0 cm/sec Med E/e': 20.1 Lat Peak E' Mookie: 4.0 cm/sec Lat E/e': 20.1 Procedure A complete two-dimensional transthoracic echocardiogram was performed (2D, M-mode, Doppler and color flow Doppler). Technically limited study. Left Ventricle The left ventricle is normal in size. There is severe concentric left ventricular hypertrophy. Left ventricular systolic function is normal. Ejection Fraction = 60-65%. Diastolic dysfunction, Grade II (pseudonormalization pattern). No regional wall motion abnormalities noted. Right Ventricle The right ventricle is normal size. The right ventricular systolic function is normal. Atria The left atrial size is normal. LA volume index is 20 ml/m2. Right atrial size is normal. Mitral Valve The mitral valve is normal in structure and function. There is mild mitral regurgitation. Tricuspid Valve The tricuspid valve is normal in structure and function. There is mild tricuspid regurgitation. Pulmo nary artery systolic pressure is at least 30 mmHg if RA pressure is assumed 3 mmHg. Aortic Valve There is mild aortic sclerosis.;. No aortic regurgitation is present. Pulmonic Valve The pulmonic valve is not well visualized. Great Vessels The aortic root is normal size. Pericardium/Pleura Trivial pericardial effusion not hemodynamically significant. Interpretation Summary The left ventricle is normal in size. There is severe concentric left ventricular hypertrophy. Left ventricular systolic function is normal. No regional wall motion abnormalities noted. Ejection Fraction = 60-65%. Diastolic dysfunction, Grade II (pseudonormalization pattern). The right ventricular systolic function is normal. The left atrial size is normal. Right atrial size is normal. There is mild mitral regurgitation. There is mild tricuspid regurgitation. Pulmonary artery systolic pressure is at least 30 mmHg if RA pressure is assumed 3 mmHg There is mild aortic sclerosis. Trivial pericardial effusion not hemodynamically significant Quique Palacios MD 07/20/2019 02:49 PM
[2019-07-20] MEDS ORDERED: ACETAMINOPHEN 500 MG TABLET (FP) PO ONE (15:02)
--- NOTE | 2019-07-20 15:17 | PN ---
Teaching Attending Note Name of Resident: Ramon Hernadez ATTENDING PHYSICIAN STATEMENT I saw and evaluated the patient. I reviewed the resident's note and discussed the case with the resident. I agree with the resident's findings and plan as documented. SUBJECTIVE: Patient seen and examined in the ER. 44 M, HTN and HLD. Admitted via the ER due to 3 days of worsening shortness of breath. No chest pain, blurry vision, abdominal pain or numbness tingling in the extremities. Noted to have a BP of 260/147. Started on IV NTG drip. BP has been improving with initiation of PO anti-hypertensive agents. Intake & Output 07/17/19 07/18/19 07/19/19 07/20/19 23:59 23:59 23:59 23:59 Output Total 150 Balance -150 Weight 268 lb Last Vital Signs Temp Pulse Resp BP Pulse Ox 98.3 F 88 18 172/96 H 98 07/20/19 07:21 07/20/19 14:42 07/20/19 14:42 07/20/19 14:42 07/20/19 14:42 Active Medications Atorvastatin Calcium (Lipitor -) 10 mg PO HS [facility] Chlorhexidine Gluconate (Hibiclens For Decolonization -) 1 applic TP HS [facility] Last Admin: 07/20/19 06:43 Dose: Not Given Heparin Sodium (Porcine) (Heparin -) 5,000 unit SQ TID [facility] Last Admin: 07/20/19 14:12 Dose: 5,000 unit Labetalol HCl (Normodyne -) 200 mg PO BID [facility] Last Admin: 07/20/19 10:12 Dose: 200 mg Labetalol HCl (Normodyne Injection -) 10 mg IVPUSH Q4H PRN PRN Reason: HYPERTENSION Last Admin: 07/20/19 14:30 Dose: 10 mg Mupirocin (Bactroban Ointment (For Decolonization) -) 1 applic NS BID [facility] Stop: 07/24/19 21:59 Last Admin: 07/20/19 10:12 Dose: Not Given Nifedipine (Procardia Xl -) 60 mg PO DAILY [facility] Last Admin: 07/20/19 11:18 Dose: 60 mg GENERAL: Awake, alert, and oriented, in no acute distress. HEAD: Normal with no signs of trauma. EYES: Extraocular movements intact, sclera anicteric, conjunctiva clear. EARS, NOSE, THROAT: Ears normal, nares patent, oropharynx clear without exudates. Moist mucous membranes. NECK: Normal range of motion, supple without lymphadenopathy, JVD, or masses. LUNGS: Breath sounds equal, clear to auscultation bilaterally. No wheezes, and no crackles. No accessory muscle use. HEART: S1 and S2 without murmur ABDOMEN: Soft, nontender, not distended, obese. MUSCULOSKELETAL: Normal range of motion at all joints. No bony deformities or tenderness. No CVA tenderness. UPPER EXTREMITIES: 2+ radial pulses, warm, well-perfused. No cyanosis. No clubbing. No peripheral edema. LOWER EXTREMITIES: 2+ dorsal pedal pulses, warm, well-perfused. No calf tenderness. Trace edema. NEUROLOGICAL: Non-focal PSYCHIATRIC: Cooperative. Good eye contact. Appropriate mood and affect. SKIN: Warm, dry, normal turgor, no rashes or lesions noted. Laboratory Results - last 24 hr 07/19/19 07/19/19 07/19/19 16:28 16:28 16:28 WBC 12.2 H RBC 5.59 Hgb 15.6 Hct 47.7 MCV 85.4 MCH 27.9 MCHC 32.7 RDW 16.1 H Plt Count 375 MPV 7.5 Absolute Neuts (auto) 8.7 H Neutrophils % 70.6 Lymphocytes % 21.2 Monocytes % 6.0 Eosinophils % 1.6 Basophils % 0.6 Nucleated RBC % 0 PT with INR INR Sodium 137 Potassium 3.5 Chloride 100 Carbon Dioxide 32 Anion Gap 5 L BUN 18.2 H Creatinine 2.0 H Est GFR (CKD-EPI)AfAm 45.37 Est GFR (CKD-EPI)NonAf 39.14 Random Glucose 102 Hemoglobin A1c % Serum Osmolality Calcium 9.3 Phosphorus Magnesium Total Bilirubin 0.4 AST 26 ALT 38 Alkaline Phosphatase 71 Creatine Kinase 446 H Creatine Kinase Index 0.7 CK-MB (CK-2) 3.2 Troponin I 0.09 H B-Natriuretic Peptide 1401.2 H Total Protein 7.5 Albumin 4.2 TSH Urine Color Urine Appearance Urine pH Ur Specific [place] Urine Protein Urine Glucose (UA) Urine Ketones Urine Blood Urine Nitrite Urine Bilirubin Urine Urobilinogen Ur Leukocyte Esterase Urine WBC (Auto) Urine RBC (Auto) Urine Casts (Auto) U Epithel Cells (Auto) Urine Bacteria (Auto) Urine Osmolality Ur Random Creatinine Ur Random Sodium Ur Random Potassium Ur Random Chloride 07/19/19 07/20/19 07/20/19 16:28 05:30 05:30 WBC 9.2 RBC 4.71 Hgb 13.3 Hct 39.9 D MCV 84.7 MCH 28.3 MCHC 33.4 RDW 15.9 Plt Count 327 MPV 7.4 L Absolute Neuts (auto) 6.6 Neutrophils % 71.8 Lymphocytes % 19.5 Monocytes % 5.9 Eosinophils % 2.1 Basophils % 0.7 Nucleated RBC % 0 PT with INR 11.60 INR 0.98 Sodium 140 Potassium 3.6 Chloride 102 Carbon Dioxide 33 H Anion Gap 5 L BUN 18.6 H Creatinine 2.0 H Est GFR (CKD-EPI)AfAm 45.37 Est GFR (CKD-EPI)NonAf 39.14 Random Glucose 118 H Hemoglobin A1c % Serum Osmolality Calcium 8.9 Phosphorus 4.4 Magnesium 2.2 Total Bilirubin 0.6 AST 21 ALT 34 Alkaline Phosphatase 51 Creatine Kinase Creatine Kinase Index CK-MB (CK-2) Troponin I 0.06 H B-Natriuretic Peptide Total Protein 6.1 L Albumin 3.4 TSH 3.53 Urine Color Urine Appearance Urine pH Ur Specific [place] Urine Protein Urine Glucose (UA) Urine Ketones Urine Blood Urine Nitrite Urine Bilirubin Urine Urobilinogen Ur Leukocyte Esterase Urine WBC (Auto) Urine RBC (Auto) Urine Casts (Auto) U Epithel Cells (Auto) Urine Bacteria (Auto) Urine Osmolality Ur Random Creatinine Ur Random Sodium Ur Random Potassium Ur Random Chloride 07/20/19 07/20/19 07/20/19 05:30 05:40 05:40 WBC RBC Hgb Hct MCV MCH MCHC RDW Plt Count MPV Absolute Neuts (auto) Neutrophils % Lymphocytes % Monocytes % Eosinophils % Basophils % Nucleated RBC % PT with INR INR Sodium Potassium Chloride Carbon Dioxide Anion Gap BUN Creatinine Est GFR (CKD-EPI)AfAm Est GFR (CKD-EPI)NonAf Random Glucose Hemoglobin A1c % 6.0 Serum Osmolality Calcium Phosphorus Magnesium Total Bilirubin AST ALT Alkaline Phosphatase Creatine Kinase Creatine Kinase Index CK-MB (CK-2) Troponin I B-Natriuretic Peptide Total Protein Albumin TSH Urine Color Urine Appearance Urine pH Ur Specific [place] Urine Protein Urine Glucose (UA) Urine Ketones Urine Blood Urine Nitrite Urine Bilirubin Urine Urobilinogen Ur Leukocyte Esterase Urine WBC (Auto) Urine RBC (Auto) Urine Casts (Auto) U Epithel Cells (Auto) Urine Bacteria (Auto) Urine Osmolality Ur Random Creatinine 181.0 H Ur Random Sodium 59 Ur Random Potassium 52.0 Ur Random Chloride 68 L 07/20/19 07/20/19 07/20/19 05:40 05:40 05:40 WBC RBC Hgb Hct MCV MCH MCHC RDW Plt Count MPV Absolute Neuts (auto) Neutrophils % Lymphocytes % Monocytes % Eosinophils % Basophils % Nucleated RBC % PT with INR INR Sodium Potassium Chloride Carbon Dioxide Anion Gap BUN Creatinine Est GFR (CKD-EPI)AfAm Est GFR (CKD-EPI)NonAf Random Glucose Hemoglobin A1c % Serum Osmolality 296 Calcium Phosphorus Magnesium Total Bilirubin AST ALT Alkaline Phosphatase Creatine Kinase Creatine Kinase Index CK-MB (CK-2) Troponin I B-Natriuretic Peptide Total Protein Albumin TSH Urine Color Yellow Urine Appearance Clear Urine pH 6.0 Ur Specific [place] 1.020 Urine Protein 4+ H Urine Glucose (UA) Negative Urine Ketones Negative Urine Blood Negative Urine Nitrite Negative Urine Bilirubin Negative Urine Urobilinogen 0.2 Ur Leukocyte Esterase Negative Urine WBC (Auto) 0 Urine RBC (Auto) 2 Urine Casts (Auto) 1 U Epithel Cells (Auto) 0.6 Urine Bacteria (Auto) 0.2 Urine Osmolality 556 Ur Random Creatinine Ur Random Sodium Ur Random Potassium Ur Random Chloride ASSESSMENT/PLAN: Resolving Hypertensive Urgency HTN HLD Wean IV NTG drip Titrate oral Anti-hypertensive agents ECHO O2 as needed At this point, no indication for ICU monitoring and can be safely monitored on the Cardiac Telemetry Unit Please call for any change in condition or additional input Dr Rand
--- NOTE | 2019-07-20 15:28 | PN ---
Teaching Attending Note Name of Resident: Eric Dumont ATTENDING PHYSICIAN STATEMENT I saw and evaluated the patient. I reviewed the resident's note and discussed the case with the resident. I agree with the resident's findings and plan as documented with exceptions below. SUBJECTIVE: patient seen and examined, denies any chest pain, palpitations, dyspnea, dizziness, tingling, arm or neck pain. Feels well. OBJECTIVE: Vital Signs Period Temp Pulse Resp BP Sys/Ricketts Pulse Ox Last 24 Hr 98.0 F-98.3 F 74-107 16-26 154-267/81-149 94-99 Intake & Output 07/17/19 07/18/19 07/19/19 07/20/19 23:59 23:59 23:59 23:59 Output Total 150 Balance -150 Weight 268 lb General: sitting in bed, no acute distress neck: soft, supple Chest: CTAB, no rales or wheezing Abdomen:Soft, obese, NT Extremities: no pedal edema, pos pulses Home Medications Medication Instructions Recorded No Home Medications 0 dose .ROUTE UTDICT 08/28/12 Active Medications Atorvastatin Calcium (Lipitor -) 10 mg PO HS ANABELLA Chlorhexidine Gluconate (Hibiclens For Decolonization -) 1 applic TP HS [facility] Last Admin: 07/20/19 06:43 Dose: Not Given Heparin Sodium (Porcine) (Heparin -) 5,000 unit SQ TID ANABELLA Last Admin: 07/20/19 14:12 Dose: 5,000 unit Labetalol HCl (Normodyne -) 200 mg PO BID [facility] Last Admin: 07/20/19 10:12 Dose: 200 mg Labetalol HCl (Normodyne Injection -) 10 mg IVPUSH Q4H PRN PRN Reason: HYPERTENSION Last Admin: 07/20/19 14:30 Dose: 10 mg Mupirocin (Bactroban Ointment (For Decolonization) -) 1 applic NS BID ANABELLA Stop: 07/24/19 21:59 Last Admin: 07/20/19 10:12 Dose: Not Given Nifedipine (Procardia Xl -) 60 mg PO DAILY [facility] Last Admin: 07/20/19 11:18 Dose: 60 mg Laboratory Results - last 24 hr 07/19/19 07/19/19 07/19/19 16:28 16:28 16:28 WBC 12.2 H RBC 5.59 Hgb 15.6 Hct 47.7 MCV 85.4 MCH 27.9 MCHC 32.7 RDW 16.1 H Plt Count 375 MPV 7.5 Absolute Neuts (auto) 8.7 H Neutrophils % 70.6 Lymphocytes % 21.2 Monocytes % 6.0 Eosinophils % 1.6 Basophils % 0.6 Nucleated RBC % 0 PT with INR INR Sodium 137 Potassium 3.5 Chloride 100 Carbon Dioxide 32 Anion Gap 5 L BUN 18.2 H Creatinine 2.0 H Est GFR (CKD-EPI)AfAm 45.37 Est GFR (CKD-EPI)NonAf 39.14 Random Glucose 102 Hemoglobin A1c % Serum Osmolality Calcium 9.3 Phosphorus Magnesium Total Bilirubin 0.4 AST 26 ALT 38 Alkaline Phosphatase 71 Creatine Kinase 446 H Creatine Kinase Index 0.7 CK-MB (CK-2) 3.2 Troponin I 0.09 H B-Natriuretic Peptide 1401.2 H Total Protein 7.5 Albumin 4.2 TSH Urine Color Urine Appearance Urine pH Ur Specific [place] Urine Protein Urine Glucose (UA) Urine Ketones Urine Blood Urine Nitrite Urine Bilirubin Urine Urobilinogen Ur Leukocyte Esterase Urine WBC (Auto) Urine RBC (Auto) Urine Casts (Auto) U Epithel Cells (Auto) Urine Bacteria (Auto) Urine Osmolality Ur Random Creatinine U Random Total Protein Ur Random Sodium Ur Random Potassium Ur Random Chloride Urine Creatinine Protein/Creatinin Ratio 07/19/19 07/20/19 07/20/19 16:28 05:30 05:30 WBC 9.2 RBC 4.71 Hgb 13.3 Hct 39.9 D MCV 84.7 MCH 28.3 MCHC 33.4 RDW 15.9 Plt Count 327 MPV 7.4 L Absolute Neuts (auto) 6.6 Neutrophils % 71.8 Lymphocytes % 19.5 Monocytes % 5.9 Eosinophils % 2.1 Basophils % 0.7 Nucleated RBC % 0 PT with INR 11.60 INR 0.98 Sodium 140 Potassium 3.6 Chloride 102 Carbon Dioxide 33 H Anion Gap 5 L BUN 18.6 H Creatinine 2.0 H Est GFR (CKD-EPI)AfAm 45.37 Est GFR (CKD-EPI)NonAf 39.14 Random Glucose 118 H Hemoglobin A1c % Serum Osmolality Calcium 8.9 Phosphorus 4.4 Magnesium 2.2 Total Bilirubin 0.6 AST 21 ALT 34 Alkaline Phosphatase 51 Creatine Kinase Creatine Kinase Index CK-MB (CK-2) Troponin I 0.06 H B-Natriuretic Peptide Total Protein 6.1 L Albumin 3.4 TSH 3.53 Urine Color Urine Appearance Urine pH Ur Specific [place] Urine Protein Urine Glucose (UA) Urine Ketones Urine Blood Urine Nitrite Urine Bilirubin Urine Urobilinogen Ur Leukocyte Esterase Urine WBC (Auto) Urine RBC (Auto) Urine Casts (Auto) U Epithel Cells (Auto) Urine Bacteria (Auto) Urine Osmolality Ur Random Creatinine U Random Total Protein Ur Random Sodium Ur Random Potassium Ur Random Chloride Urine Creatinine Protein/Creatinin Ratio 07/20/19 07/20/19 07/20/19 05:30 05:40 05:40 WBC RBC Hgb Hct MCV MCH MCHC RDW Plt Count MPV Absolute Neuts (auto) Neutrophils % Lymphocytes % Monocytes % Eosinophils % Basophils % Nucleated RBC % PT with INR INR Sodium Potassium Chloride Carbon Dioxide Anion Gap BUN Creatinine Est GFR (CKD-EPI)AfAm Est GFR (CKD-EPI)NonAf Random Glucose Hemoglobin A1c % 6.0 Serum Osmolality Calcium Phosphorus Magnesium Total Bilirubin AST ALT Alkaline Phosphatase Creatine Kinase Creatine Kinase Index CK-MB (CK-2) Troponin I B-Natriuretic Peptide Total Protein Albumin TSH Urine Color Urine Appearance Urine pH Ur Specific [place] Urine Protein Urine Glucose (UA) Urine Ketones Urine Blood Urine Nitrite Urine Bilirubin Urine Urobilinogen Ur Leukocyte Esterase Urine WBC (Auto) Urine RBC (Auto) Urine Casts (Auto) U Epithel Cells (Auto) Urine Bacteria (Auto) Urine Osmolality Ur Random Creatinine 181.0 H U Random Total Protein Ur Random Sodium 59 Ur Random Potassium 52.0 Ur Random Chloride 68 L Urine Creatinine Protein/Creatinin Ratio 07/20/19 07/20/19 07/20/19 05:40 05:40 05:40 WBC RBC Hgb Hct MCV MCH MCHC RDW Plt Count MPV Absolute Neuts (auto) Neutrophils % Lymphocytes % Monocytes % Eosinophils % Basophils % Nucleated RBC % PT with INR INR Sodium Potassium Chloride Carbon Dioxide Anion Gap BUN Creatinine Est GFR (CKD-EPI)AfAm Est GFR (CKD-EPI)NonAf Random Glucose Hemoglobin A1c % Serum Osmolality 296 Calcium Phosphorus Magnesium Total Bilirubin AST ALT Alkaline Phosphatase Creatine Kinase Creatine Kinase Index CK-MB (CK-2) Troponin I B-Natriuretic Peptide Total Protein Albumin TSH Urine Color Yellow Urine Appearance Clear Urine pH 6.0 Ur Specific [place] 1.020 Urine Protein 4+ H Urine Glucose (UA) Negative Urine Ketones Negative Urine Blood Negative Urine Nitrite Negative Urine Bilirubin Negative Urine Urobilinogen 0.2 Ur Leukocyte Esterase Negative Urine WBC (Auto) 0 Urine RBC (Auto) 2 Urine Casts (Auto) 1 U Epithel Cells (Auto) 0.6 Urine Bacteria (Auto) 0.2 Urine Osmolality 556 Ur Random Creatinine U Random Total Protein Ur Random Sodium Ur Random Potassium Ur Random Chloride Urine Creatinine Protein/Creatinin Ratio 07/20/19 07/20/19 07/20/19 13:25 13:25 14:33 WBC RBC Hgb Hct MCV MCH MCHC RDW Plt Count MPV Absolute Neuts (auto) Neutrophils % Lymphocytes % Monocytes % Eosinophils % Basophils % Nucleated RBC % PT with INR INR Sodium Potassium Chloride Carbon Dioxide Anion Gap BUN Creatinine Est GFR (CKD-EPI)AfAm Est GFR (CKD-EPI)NonAf Random Glucose Hemoglobin A1c % Serum Osmolality Calcium Phosphorus Magnesium Total Bilirubin AST ALT Alkaline Phosphatase Creatine Kinase Creatine Kinase Index CK-MB (CK-2) Troponin I 0.04 B-Natriuretic Peptide Total Protein Albumin TSH Urine Color Urine Appearance Urine pH Ur Specific [place] Urine Protein Urine Glucose (UA) Urine Ketones Urine Blood Urine Nitrite Urine Bilirubin Urine Urobilinogen Ur Leukocyte Esterase Urine WBC (Auto) Urine RBC (Auto) Urine Casts (Auto) U Epithel Cells (Auto) Urine Bacteria (Auto) Urine Osmolality Ur Random Creatinine U Random Total Protein 348.6 H Ur Random Sodium 25 L Ur Random Potassium 56.0 Ur Random Chloride 12 L Urine Creatinine 239.0 Protein/Creatinin Ratio 1.5 ASSESSMENT AND PLAN: 44 yom with PMHx of HTN, HLD, no follow up in 2 years, no BP meds for last 2 years, admitted with dyspnea, orthopnea, noted with Elevated BP, borderline troponin elevation and elevation creatinine. -Hypertensive emergency -Elevated creatinine, suspect CKD from poorly controlled BP rather than THEO -Elevated troponin, suspect demand induced from above rather than ACS -Severe concentric LVH with grade II diastolic dysfunction -HLD -Obesity (BMI 35.4) Plan: BP improved start labetalol 200 mg PO BID, titrate up as needed, d/c IV Nitro drip. ( medication history with sildenafil) Labetalol IV prn. Cardiology input noted, 2D echo noted. EKG with left heart strain pattern but no dynamic changes. Trop flat. Creatinine unchanged. Renal/bladder US. urine studies, Nephrology input. Check lipid panel. Start ASA/statin. A1c 6. BP improved, asymptomatic, ok for downgrade to telemetry. ICU input appreciated. Plan discussed with patient in detail, all questions answered). total critical care time spent 36 min. Critical Care Total Critical Care Time (in minutes): 36 Critical Care Statement: The care of this patient involved high complexity decision making to prevent further life threatening deterioration of the patient 's condition and/or to evaluate & treat vital organ system(s) failure or risk of failure.
[2019-07-20] MEDS ORDERED: ACETAMINOPHEN 500 MG TABLET (FP) ONE (16:21)
--- NOTE | 2019-07-20 16:42 | PN ---
Teaching Attending Note Name of Resident: Monroe High (Nephrology) ATTENDING PHYSICIAN STATEMENT I saw and evaluated the patient. I reviewed the resident's note and discussed the case with the resident. I agree with the resident's findings and plan as documented. Renal Pt is a 44 year old male with pmxh of HTN who presents with SOB. he was found to be in hypertensive urgency and put on nitro drip. He has history of htn however stopped taking his meds 2 years ago. He has not seen his pmd in 2 years. pmhx htn nkda familyhx denies ros denies headache Current Medications Generic Name Dose Route Start Last Admin Trade Name Freq PRN Reason Stop Dose Admin Atorvastatin Calcium 10 mg 07/20/19 22:00 Lipitor - PO HS ANABELLA Chlorhexidine Gluconate 1 applic 07/19/19 22:00 07/20/19 06:43 Hibiclens For Decolonization - TP Not Given HS ANABELLA Heparin Sodium (Porcine) 5,000 unit 07/20/19 06:00 07/20/19 14:12 Heparin - SQ 5,000 unit TID ANABELLA Administration Labetalol HCl 200 mg 07/20/19 10:00 07/20/19 10:12 Normodyne - PO 200 mg BID ANABLELA Administration Labetalol HCl 10 mg 07/20/19 10:23 07/20/19 14:30 Normodyne Injection - IVPUSH 10 mg Q4H PRN Administration HYPERTENSION Mupirocin 1 applic 07/19/19 22:00 07/20/19 10:12 Bactroban Ointment (For Decolonization) - NS 07/24/19 21:59 Not Given BID ANABELLA Nifedipine 60 mg 07/20/19 11:00 07/20/19 11:18 Procardia Xl - PO 60 mg DAILY ANABELLA Administration Last Vital Signs Temp Pulse Resp BP Pulse Ox 98.3 F 91 H 20 162/101 H 96 07/20/19 07:21 07/20/19 16:01 07/20/19 16:01 07/20/19 16:01 07/20/19 16:01 Laboratory Tests 07/19/19 07/20/19 07/20/19 16:28 05:30 05:40 Creatinine 2.0 H 2.0 H Urine Protein 4+ H Protein/Creatinin Ratio 07/20/19 13:25 Creatinine Urine Protein Protein/Creatinin Ratio 1.5 cardio s1s2 pulm clear gi soft obese ext 1 plus edema Impression 1. htn 2. hld 3. non compliance 4. proteinuria 5. ckd Plan - cont bp meds - bp is improving - renal ultrasound reviewed - monitor renal function - will need outpt follow up - obtain outpt records
--- NOTE | 2019-07-20 17:21 | PN ---
Physical Exam: SUBJECTIVE: Patient seen and examined at the bedside. Stated that his shortness of breath improved but stated that he continued to have a headache and stated he had a brief episode of tingling on his L UE and neck. Denied cp, n/v/c/d, back pain, abd pain, fever, chills. Repeat troponins and EKG obtained OBJECTIVE: Vital Signs Period Temp Pulse Resp BP Sys/Ricketts Pulse Ox Last 24 Hr 98.0 F-98.3 F 74-97 16-26 154-222/81-146 94-99 GENERAL: Awake, alert, and fully oriented, in no acute distress, obese HEAD: Normal with no signs of trauma. EYES: Pupils equal, round and reactive to light, extraocular movements intact, sclera anicteric, conjunctiva clear. Mild proptosis. NECK: Normal range of motion, supple without lymphadenopathy, JVD. LUNGS: Breath sounds equal, clear to auscultation bilaterally. No wheezes, and no crackles. No accessory muscle use. HEART: Regular rhythm, tachycardic, normal S1 and S2 without murmur, rub or gallop. ABDOMEN: Soft, nontender, not distended, normoactive bowel sounds, no guarding, no rebound, no masses. MUSCULOSKELETAL: Normal range of motion at all joints. No bony deformities or tenderness. UPPER EXTREMITIES: 2+ pulses, warm, well-perfused. No cyanosis. No clubbing. No peripheral edema. LOWER EXTREMITIES: 2+ pulses, warm, well-perfused. No calf tenderness. 1+ peripheral edema. NEUROLOGICAL: Cranial nerves II-XII intact. Normal speech. PSYCHIATRIC: Cooperative. Good eye contact. Appropriate mood and affect. SKIN: Warm, dry, normal turgor, no rashes or lesions noted, normal capillary refill. Laboratory Results - last 24 hr 07/19/19 07/19/19 07/20/19 16:28 16:28 05:30 WBC 9.2 RBC 4.71 Hgb 13.3 Hct 39.9 D MCV 84.7 MCH 28.3 MCHC 33.4 RDW 15.9 Plt Count 327 MPV 7.4 L Absolute Neuts (auto) 6.6 Neutrophils % 71.8 Lymphocytes % 19.5 Monocytes % 5.9 Eosinophils % 2.1 Basophils % 0.7 Nucleated RBC % 0 Sodium 137 Potassium 3.5 Chloride 100 Carbon Dioxide 32 Anion Gap 5 L BUN 18.2 H Creatinine 2.0 H Est GFR (CKD-EPI)AfAm 45.37 Est GFR (CKD-EPI)NonAf 39.14 Random Glucose 102 Hemoglobin A1c % Serum Osmolality Calcium 9.3 Phosphorus Magnesium Total Bilirubin 0.4 AST 26 ALT 38 Alkaline Phosphatase 71 Creatine Kinase 446 H Creatine Kinase Index 0.7 CK-MB (CK-2) 3.2 Troponin I 0.09 H B-Natriuretic Peptide 1401.2 H Total Protein 7.5 Albumin 4.2 TSH Urine Color Urine Appearance Urine pH Ur Specific [place] Urine Protein Urine Glucose (UA) Urine Ketones Urine Blood Urine Nitrite Urine Bilirubin Urine Urobilinogen Ur Leukocyte Esterase Urine WBC (Auto) Urine RBC (Auto) Urine Casts (Auto) U Epithel Cells (Auto) Urine Bacteria (Auto) Urine Osmolality Ur Random Creatinine U Random Total Protein Ur Random Sodium Ur Random Potassium Ur Random Chloride Urine Creatinine Protein/Creatinin Ratio 07/20/19 07/20/19 07/20/19 05:30 05:30 05:40 WBC RBC Hgb Hct MCV MCH MCHC RDW Plt Count MPV Absolute Neuts (auto) Neutrophils % Lymphocytes % Monocytes % Eosinophils % Basophils % Nucleated RBC % Sodium 140 Potassium 3.6 Chloride 102 Carbon Dioxide 33 H Anion Gap 5 L BUN 18.6 H Creatinine 2.0 H Est GFR (CKD-EPI)AfAm 45.37 Est GFR (CKD-EPI)NonAf 39.14 Random Glucose 118 H Hemoglobin A1c % 6.0 Serum Osmolality Calcium 8.9 Phosphorus 4.4 Magnesium 2.2 Total Bilirubin 0.6 AST 21 ALT 34 Alkaline Phosphatase 51 Creatine Kinase Creatine Kinase Index CK-MB (CK-2) Troponin I 0.06 H B-Natriuretic Peptide Total Protein 6.1 L Albumin 3.4 TSH 3.53 Urine Color Urine Appearance Urine pH Ur Specific [place] Urine Protein Urine Glucose (UA) Urine Ketones Urine Blood Urine Nitrite Urine Bilirubin Urine Urobilinogen Ur Leukocyte Esterase Urine WBC (Auto) Urine RBC (Auto) Urine Casts (Auto) U Epithel Cells (Auto) Urine Bacteria (Auto) Urine Osmolality Ur Random Creatinine 181.0 H U Random Total Protein Ur Random Sodium Ur Random Potassium Ur Random Chloride Urine Creatinine Protein/Creatinin Ratio 07/20/19 07/20/19 07/20/19 05:40 05:40 05:40 WBC RBC Hgb Hct MCV MCH MCHC RDW Plt Count MPV Absolute Neuts (auto) Neutrophils % Lymphocytes % Monocytes % Eosinophils % Basophils % Nucleated RBC % Sodium Potassium Chloride Carbon Dioxide Anion Gap BUN Creatinine Est GFR (CKD-EPI)AfAm Est GFR (CKD-EPI)NonAf Random Glucose Hemoglobin A1c % Serum Osmolality Calcium Phosphorus Magnesium Total Bilirubin AST ALT Alkaline Phosphatase Creatine Kinase Creatine Kinase Index CK-MB (CK-2) Troponin I B-Natriuretic Peptide Total Protein Albumin TSH Urine Color Yellow Urine Appearance Clear Urine pH 6.0 Ur Specific [place] 1.020 Urine Protein 4+ H Urine Glucose (UA) Negative Urine Ketones Negative Urine Blood Negative Urine Nitrite Negative Urine Bilirubin Negative Urine Urobilinogen 0.2 Ur Leukocyte Esterase Negative Urine WBC (Auto) 0 Urine RBC (Auto) 2 Urine Casts (Auto) 1 U Epithel Cells (Auto) 0.6 Urine Bacteria (Auto) 0.2 Urine Osmolality 556 Ur Random Creatinine U Random Total Protein Ur Random Sodium 59 Ur Random Potassium 52.0 Ur Random Chloride 68 L Urine Creatinine Protein/Creatinin Ratio 07/20/19 07/20/19 07/20/19 05:40 13:25 13:25 WBC RBC Hgb Hct MCV MCH MCHC RDW Plt Count MPV Absolute Neuts (auto) Neutrophils % Lymphocytes % Monocytes % Eosinophils % Basophils % Nucleated RBC % Sodium Potassium Chloride Carbon Dioxide Anion Gap BUN Creatinine Est GFR (CKD-EPI)AfAm Est GFR (CKD-EPI)NonAf Random Glucose Hemoglobin A1c % Serum Osmolality 296 Calcium Phosphorus Magnesium Total Bilirubin AST ALT Alkaline Phosphatase Creatine Kinase Creatine Kinase Index CK-MB (CK-2) Troponin I B-Natriuretic Peptide Total Protein Albumin TSH Urine Color Urine Appearance Urine pH Ur Specific [place] Urine Protein Urine Glucose (UA) Urine Ketones Urine Blood Urine Nitrite Urine Bilirubin Urine Urobilinogen Ur Leukocyte Esterase Urine WBC (Auto) Urine RBC (Auto) Urine Casts (Auto) U Epithel Cells (Auto) Urine Bacteria (Auto) Urine Osmolality Ur Random Creatinine U Random Total Protein 348.6 H Ur Random Sodium 25 L Ur Random Potassium 56.0 Ur Random Chloride 12 L Urine Creatinine 239.0 Protein/Creatinin Ratio 1.5 07/20/19 07/20/19 07/20/19 14:33 16:03 16:03 WBC RBC Hgb Hct MCV MCH MCHC RDW Plt Count MPV Absolute Neuts (auto) Neutrophils % Lymphocytes % Monocytes % Eosinophils % Basophils % Nucleated RBC % Sodium Potassium Chloride Carbon Dioxide Anion Gap BUN Creatinine Est GFR (CKD-EPI)AfAm Est GFR (CKD-EPI)NonAf Random Glucose Hemoglobin A1c % Serum Osmolality Calcium Phosphorus Magnesium Total Bilirubin AST ALT Alkaline Phosphatase Creatine Kinase Creatine Kinase Index CK-MB (CK-2) Troponin I 0.04 B-Natriuretic Peptide Total Protein Albumin TSH Urine Color Urine Appearance Urine pH Ur Specific [place] Urine Protein Urine Glucose (UA) Urine Ketones Urine Blood Urine Nitrite Urine Bilirubin Urine Urobilinogen Ur Leukocyte Esterase Urine WBC (Auto) Urine RBC (Auto) Urine Casts (Auto) U Epithel Cells (Auto) Urine Bacteria (Auto) Urine Osmolality 375 D Ur Random Creatinine U Random Total Protein Ur Random Sodium Cancelled Ur Random Potassium Cancelled Ur Random Chloride Cancelled Urine Creatinine Protein/Creatinin Ratio 07/20/19 16:03 WBC RBC Hgb Hct MCV MCH MCHC RDW Plt Count MPV Absolute Neuts (auto) Neutrophils % Lymphocytes % Monocytes % Eosinophils % Basophils % Nucleated RBC % Sodium Potassium Chloride Carbon Dioxide Anion Gap BUN Creatinine Est GFR (CKD-EPI)AfAm Est GFR (CKD-EPI)NonAf Random Glucose Hemoglobin A1c % Serum Osmolality Calcium Phosphorus Magnesium Total Bilirubin AST ALT Alkaline Phosphatase Creatine Kinase Creatine Kinase Index CK-MB (CK-2) Troponin I B-Natriuretic Peptide Total Protein Albumin TSH Urine Color Urine Appearance Urine pH Ur Specific [place] Urine Protein Urine Glucose (UA) Urine Ketones Urine Blood Urine Nitrite Urine Bilirubin Urine Urobilinogen Ur Leukocyte Esterase Urine WBC (Auto) Urine RBC (Auto) Urine Casts (Auto) U Epithel Cells (Auto) Urine Bacteria (Auto) Urine Osmolality Ur Random Creatinine 118.0 U Random Total Protein Ur Random Sodium 50 Ur Random Potassium 31.0 Ur Random Chloride 31 L Urine Creatinine Protein/Creatinin Ratio Active Medications Generic Name Dose Route Start Last Admin Trade Name Freq PRN Reason Stop Dose Admin Atorvastatin Calcium 10 mg 07/20/19 22:00 Lipitor - PO HS ANABELLA Chlorhexidine Gluconate 1 applic 07/19/19 22:00 07/20/19 06:43 Hibiclens For Decolonization - TP Not Given HS ANABELLA Heparin Sodium (Porcine) 5,000 unit 07/20/19 06:00 07/20/19 14:12 Heparin - SQ 5,000 unit TID ANABELLA Administration Labetalol HCl 200 mg 07/20/19 10:00 07/20/19 10:12 Normodyne - PO 200 mg BID ANABELLA Administration Labetalol HCl 10 mg 07/20/19 10:23 07/20/19 14:30 Normodyne Injection - IVPUSH 10 mg Q4H PRN Administration HYPERTENSION Mupirocin 1 applic 07/19/19 22:00 07/20/19 10:12 Bactroban Ointment (For Decolonization) - NS 07/24/19 21:59 Not Given BID ANABELLA Nifedipine 60 mg 07/20/19 11:00 07/20/19 11:18 Procardia Xl - PO 60 mg DAILY ANABELLA Administration ASSESSMENT/PLAN: Wallace Novak is a 44 year old male with a past medical hx of HTN and HLD, presenting to the ED with SOB and found to be Hypertensive to 267/146 with evidence of renal dysfunction. HTN emergency - Nitro drip to reduce after-load given the pt has evidence of L heart strain on EKG, stopped - labetalol 200mg bid - labetalol 10mg q4h prn - procardia 60mg daily - Echo showing severe LVH, EF 60-65%, grade I diastolic dysfunction - troponins 0.09-->0.06-->0.04, no further trending - counseled pt on importance of taking anti-HTN medications, HLD medications, and following up with appropriate doctors. - EKG showing sinus rhythm with PVCs, ST elevation in V1, V2, ST depressions in V5, V6, T wave inversions in I, II, aVF. more suggestive of left heart strain in the absence of anginal chest pain. will continue to monitor. - cardiology consulted, recs appreciated HLD - continue atorvastatin 10mg qhs THEO - likely from severe HTN, no baseline for comparison - f/u UA for evidence of microscopic hematuria - avoid renal toxins - renal lytes, elevated total protein 348, urine Na 50 - FENa, low suggesting pre-renal process - renal u/s with no acute abnormalities - accurate Is/Os - daily weights - nephrology consulted, recs appreciated Mild leukocytosis - afebrile, no signs of infection - trend CBC, resolved 9.2 - monitor off ABX for now FEN - PO fluids - continue to monitor electrolytes and replete as necessary - Na controlled diet PPx - Heparin 5000u SQ TID Dispo - continue to monitor on telemetry Visit type - Emergency Visit Emergency Visit: No - New Patient This patient is new to me today: Yes Date on this admission: 07/20/19 - Critical Care Critical Care patient: No
[2019-07-20 21:56] VITALS: BMI 35.6
[2019-07-20] MEDS ORDERED: MUPIROCIN 2% TOPICAL OINTMENT FOR DECOLONIZATION NS SCH (22:00)
[2019-07-20] MEDS ORDERED: CHLORHEXIDINE GLUCONATE 4% CLEANSER FOR DECOLONIZATION TP SCH (22:00)
[2019-07-20] MEDS ORDERED: ATORVASTATIN CA 10 MG TABLET (FP) PO SCH (22:00)
[2019-07-20] MEDS ORDERED: FLU VACCINE QUAD 60 MCG/0.5 ML (MDV 19-20) IM ONE (22:29)
[2019-07-20] MEDS: LABETALOL HCL 200 MG TABLET (FP) PO SCH (23:03)
[2019-07-21] MEDS: HEPARIN NA (PORCINE) 5,000 UNITS/ML 1ML VIAL SQ SCH (06:52)
[2019-07-21 07:05] LABS: HEMATOCRIT 41.8 % (35.4-49); MCH 28.4 pg (25.7-33.7); MCHC 33.4 g/dl (32.0-35.9); MEAN PLT VOLUME 7.8 fl (7.5-11.1); PLATELET COUNT 328 K/MM3 (134-434); RBC 4.92 M/mm3 (4.00-5.60); WHITE BLOOD COUNT 10.6 K/mm3 (4.0-10.0)
[2019-07-21 08:01] LABS: BLOOD UREA NITROGEN 17.9 mg/dL (7-18); CALCIUM 9.3 mg/dL (8.5-10.1); CREATININE 1.9 mg/dL (0.55-1.3); POTASSIUM 3.7 mmol/L (3.5-5.1)
[2019-07-21] MEDS ORDERED: NIFEdipine E.R 60 MG TABLET (UD) PO SCH (10:00)
--- NOTE | 2019-07-21 10:26 | PN ---
Progress Note, Physician Chief Complaint: Not in distress History of Present Illness: Patient was seen and examined. Awake and alert. Chart was reviewed Denies chest pain, SOB or palpitations - Current Medication List Current Medications: Active Medications Atorvastatin Calcium (Lipitor -) 10 mg PO HS [facility] Last Admin: 07/20/19 23:03 Dose: 10 mg Heparin Sodium (Porcine) (Heparin -) 5,000 unit SQ TID [facility] Last Admin: 07/21/19 06:52 Dose: 5,000 unit Labetalol HCl (Normodyne -) 200 mg PO BID [facility] Last Admin: 07/20/19 23:03 Dose: 200 mg Labetalol HCl (Normodyne Injection -) 10 mg IVPUSH Q4H PRN PRN Reason: HYPERTENSION Nifedipine (Procardia Xl -) 60 mg PO DAILY [facility] - Objective Vital Signs: Vital Signs Temperature 97.7 F 07/21/19 06:00 Pulse Rate 101 H 07/21/19 06:00 Respiratory Rate 20 07/21/19 06:00 Blood Pressure 141/93 07/21/19 06:00 O2 Sat by Pulse Oximetry (%) 100 07/20/19 20:45 Eyes: Yes: PERRL HENT: Yes: Atraumatic Neck: Yes: Supple Cardiovascular: Yes: Regular Rate and Rhythm, S1, S2 Respiratory: Yes: CTA Bilaterally Gastrointestinal: Yes: Normal Bowel Sounds, Soft. No: Tenderness Edema: No Additional Findings/Remarks: - Review of Systems Constitutional: denies: Chills, Fever Cardiovascular: reports: Shortness of Breath. denies: Chest Pain, Palpitations Respiratory: reports: SOB, SOB on Exertion. denies: Cough, Hemoptysis, Orthopnea, PND, Wheezing Gastrointestinal: denies: Abdominal Pain, Constipation, Diarrhea, Melena, Nausea , Rectal Bleeding, Vomiting Genitourinary: denies: Dysuria, Hematuria Musculoskeletal: denies: Back Pain, Joint Pain Neurological: denies: Dizziness, Headache, Seizure, Syncope Labs: CBC, BMP 07/21/19 06:00 07/21/19 06:00 INR, PTT INR 0.98 (0.83-1.09) 07/19/19 16:28 Problem List - Problems (1) Hypertensive emergency Code(s): I16.1 - HYPERTENSIVE EMERGENCY (2) Shortness of breath Code(s): R06.02 - SHORTNESS OF BREATH (3) Hypercholesterolemia Code(s): E78.00 - PURE HYPERCHOLESTEROLEMIA, UNSPECIFIED (4) Noncompliance Code(s): Z91.19 - PATIENT'S NONCOMPLIANCE W OTH MEDICAL TREATMENT AND REGIMEN Assessment/Plan 1. HTN emergency 2. Hypercholesterolemia 3. Noncompliance 4. Acute on CKD PLAN: 1. Increase Labetalol to 300 mg BID as tolerated 2. Continue IV NTG for now 3. Continue Procardia XL and uptitrate to 90 mg QD if needed 4. Echocardiography was reviewed 5. Continue Atorvastatin 10 mg QHS and check fasting lipid panel 6. Monitor renal function and electrolytes Further plans are to follow Quique Palacios MD
[2019-07-21 10:32] VITALS: BP 154/96; PULSE 100; TEMP 98.8
[2019-07-21] MEDS: LABETALOL HCL 200 MG TABLET (FP) PO SCH (10:33)
--- NOTE | 2019-07-21 10:41 | EKG ---
Test Reason : Blood Pressure : / mmHG Vent. Rate : 094 BPM Atrial Rate : 094 BPM P-R Int : 142 ms QRS Dur : 098 ms QT Int : 394 ms P-R-T Axes : 049 020 213 degrees QTc Int : 492 ms POOR DATA QUALITY, INTERPRETATION MAY BE ADVERSELY AFFECTED SINUS RHYTHM WITH PREMATURE SUPRAVENTRICULAR COMPLEXES AND WITH OCCASIONAL PREMATURE VENTRICULAR COMPLEXES POSSIBLE LEFT ATRIAL ENLARGEMENT CANNOT RULE OUT ANTERIOR INFARCT , AGE UNDETERMINED T WAVE ABNORMALITY, CONSIDER INFEROLATERAL ISCHEMIA ABNORMAL ECG Confirmed by MD TALISHA, VINICIO ([id number]) on 07/21/2019 10:40:55 AM Referred By: Confirmed By:VINICIO WOODALL MD
--- NOTE | 2019-07-21 14:01 | PN ---
Progress Note, Physician History of Present Illness: Pt seen and examined at bedside. He is awake and appears comfortable today. He denies shortness of breath. - Current Medication List Current Medications: Active Medications Atorvastatin Calcium (Lipitor -) 10 mg PO HS ANABELLA Last Admin: 07/20/19 23:03 Dose: 10 mg Heparin Sodium (Porcine) (Heparin -) 5,000 unit SQ TID ANABELLA Last Admin: 07/21/19 06:52 Dose: 5,000 unit Labetalol HCl (Normodyne Injection -) 10 mg IVPUSH Q4H PRN PRN Reason: HYPERTENSION Labetalol HCl (Normodyne -) 300 mg PO BID ANABELLA Nifedipine (Procardia Xl -) 60 mg PO DAILY ANABELLA Last Admin: 07/21/19 10:33 Dose: 60 mg - Objective Vital Signs: Vital Signs Temperature 98.8 F 07/21/19 10:00 Pulse Rate 100 H 07/21/19 10:00 Respiratory Rate 20 07/21/19 10:00 Blood Pressure 154/96 07/21/19 10:00 O2 Sat by Pulse Oximetry (%) 97 07/21/19 09:00 Constitutional: Yes: Calm Eyes: Yes: Conjunctiva Clear HENT: Yes: Atraumatic Neck: Yes: Supple Cardiovascular: Yes: S1, S2 Respiratory: Yes: CTA Bilaterally Gastrointestinal: Yes: Soft Genitourinary: Yes: WNL Extremities: Yes: WNL Edema: No Neurological: Yes: Oriented Psychiatric: Yes: Oriented Labs: CBC, BMP 07/21/19 06:00 07/21/19 06:00 INR, PTT INR 0.98 (0.83-1.09) 07/19/19 16:28 Assessment/Plan Current Medications Generic Name Dose Route Start Last Admin Trade Name Freq PRN Reason Stop Dose Admin Atorvastatin Calcium 10 mg 07/20/19 22:00 07/20/19 23:03 Lipitor - PO 10 mg HS ANABELLA Administration Heparin Sodium (Porcine) 5,000 unit 07/20/19 22:00 07/21/19 06:52 Heparin - SQ 5,000 unit TID ANABELLA Administration Labetalol HCl 10 mg 07/20/19 20:54 Normodyne Injection - IVPUSH Q4H PRN HYPERTENSION Labetalol HCl 300 mg 07/21/19 13:41 Normodyne - PO BID ANABELLA Nifedipine 60 mg 07/21/19 10:00 07/21/19 10:33 Procardia Xl - PO 60 mg DAILY ANABELLA Administration Impression 1. htn 2. hld 3. non compliance 4. proteinuria 5. ckd Plan - bp is improving - renal ultrasound reviewed - bp is improved - cont bp meds - will need workup for proteinuria
--- NOTE | 2019-07-21 15:52 | DS ---
Physical Exam: SUBJECTIVE: Patient seen and examined at the bedside. Patient stated that he was improved and denied any further episodes of tingling in his arm after yesterday's episode. Denied cp, sob, fever, chills, n/v/c/d, abd pain, numbness , tingling, weakness. OBJECTIVE: Vital Signs Period Temp Pulse Resp BP Sys/Ricketts Pulse Ox Last 24 Hr 97.7 F-98.8 F 91-101 20-22 141-166/91-105 96-100 PHYSICAL EXAM GENERAL: Awake, alert, and fully oriented, in no acute distress, obese HEAD: Normal with no signs of trauma. EYES: Pupils equal, round and reactive to light, extraocular movements intact, sclera anicteric, conjunctiva clear. Mild proptosis. NECK: Normal range of motion, supple without lymphadenopathy, JVD. LUNGS: Breath sounds equal, clear to auscultation bilaterally. No wheezes, and no crackles. No accessory muscle use. HEART: Regular rhythm, tachycardic, normal S1 and S2 without murmur, rub or gallop. ABDOMEN: Soft, nontender, not distended, normoactive bowel sounds, no guarding, no rebound, no masses. MUSCULOSKELETAL: Normal range of motion at all joints. No bony deformities or tenderness. UPPER EXTREMITIES: 2+ pulses, warm, well-perfused. No cyanosis. No clubbing. No peripheral edema. LOWER EXTREMITIES: 2+ pulses, warm, well-perfused. No calf tenderness. 1+ peripheral edema. NEUROLOGICAL: Cranial nerves II-XII intact. Normal speech. PSYCHIATRIC: Cooperative. Good eye contact. Appropriate mood and affect. SKIN: Warm, dry, normal turgor, no rashes or lesions noted, normal capillary refill. LABS Laboratory Results - last 24 hr 07/20/19 07/20/19 07/20/19 16:03 16:03 16:03 WBC RBC Hgb Hct MCV MCH MCHC RDW Plt Count MPV Sodium Potassium Chloride Carbon Dioxide Anion Gap BUN Creatinine Est GFR (CKD-EPI)AfAm Est GFR (CKD-EPI)NonAf Random Glucose Calcium Triglycerides Cholesterol Total LDL Cholesterol HDL Cholesterol Urine Osmolality 375 D Ur Random Creatinine 118.0 Ur Random Sodium Cancelled 50 Ur Random Potassium Cancelled 31.0 Ur Random Chloride Cancelled 31 L 07/21/19 07/21/19 06:00 06:00 WBC 10.6 H RBC 4.92 Hgb 14.0 Hct 41.8 MCV 85.0 MCH 28.4 MCHC 33.4 RDW 16.0 H Plt Count 328 MPV 7.8 Sodium 139 Potassium 3.7 Chloride 103 Carbon Dioxide 28 Anion Gap 7 L BUN 17.9 Creatinine 1.9 H Est GFR (CKD-EPI)AfAm 48.27 Est GFR (CKD-EPI)NonAf 41.65 Random Glucose 106 Calcium 9.3 Triglycerides 182 H Cholesterol 259 H Total LDL Cholesterol 174 H HDL Cholesterol 40 Urine Osmolality Ur Random Creatinine Ur Random Sodium Ur Random Potassium Ur Random Chloride HOSPITAL COURSE: Wallace Novak is a 44 year old male with a past medical hx of HTN and HLD, presenting to the ED with SOB and found to be Hypertensive to 267/146 with evidence of renal dysfunction. Patient was initially placed on a nitro drip for blood pressure reduction with good effect. He was transitioned over to oral medications, labetalol 200mg bid and further increased to 300mg bid. He had IV labetalol prn for breakthrough blood pressure elevations. Additionally, the patient was started on Procardia 60mg daily and atorvastatin 10mg. Patient had an EKG done which showed left heart strain. Echo performed which showed severe LVH, EF 60-65%, grade I diastolic dysfunction. Patient will follow up with cardiology as an outpatient. Patient had elevated in troponins peaking at 0.09 which downtrended. Patient was found with elevated CRE 2.0 and unknown if it was an acute or chronic process. Renal and bladder U/S was within normal limits. Nephrology was consulted and stated that this was likely a chronic process. Patient will follow up with nephrology as an outpatient. Patient was counseled to follow up with his primary care physician and all subspecialities. Patient was counseled on proper nutrition, weight loss, exercise, salt avoidance. Patient was discharged in stable condition. Date of Admission:07/19/19 Date of Discharge: 07/21/19 Minutes to complete discharge: 35 Discharge Summary Problems reviewed: Yes Reason For Visit: HYPERTENSIVE EMERGENCY Condition: Improved - Instructions Diet, Activity, Other Instructions: You were seen and admitted to the hospital because you had shortness of breath and were found to have elevated blood pressure. You received medication to decrease your blood pressure. You had an electocardiogram (electrical examination of your heart) which showed that your heart had stress put on it. You had an echocardiogram (ultrasound of the heart) performed which showed that your heart was enlarged and you have some dysfunction in the pump of your heart. You were seen by a code inspector (heart doctor) who started you on several medications to control your blood pressure. You will need to follow up with the code inspector for continued management of your high blood pressure. You had blood work done at the hospital which showed that your kidney function was decreased. An ultrasound of your kidneys did not show any acute problems. You will need to follow up with a slip bridge operator (kidney doctor) for to assess your abnormal kidney function. MEDICATIONS You were started on blood pressure medications which you should continue to take. Please start taking Labetalol 300mg twice a day Please start taking Procardia 60mg once a day. You were started on a cholesterol medication which you should continue to take. Please start taking atorvastatin 10mg every night. REFERRALS Please follow up with your primary care doctor, Dr. Zofia Marin within 1 week. Please follow up with Dr. Quique Palacios (code inspector), within 1 week. Please follow up with Dr. Tamia Grande (slip bridge operator), within 1 week. You will need to have outpatient evaluation for your abnormal kidney function. SPECIAL INSTRUCTIONS You will need to change your diet and avoid salty and fatty foods. Please limit your consumption of salt. You will need to start an exercise program. You will need to attempt to lose weight. If you experience any chest pain, shortness of breath, feelings of weakness, dizziness, lightheadedness, or general feelings of unwellness please go straight to the nearest emergency room to be evaluated. Referrals: Ev Marin MD [Primary Care Provider] - 1 Week Quique Palacios MD [Staff Physician] - 1 Week Tamia Grande MD [Staff Physician] - 1 Week Disposition: HOME - Home Medications Comprehensive Discharge Medication List: Ambulatory Orders Atorvastatin Ca [Lipitor] 10 mg PO HS #30 tablet 07/21/19 Blood Pressure Kit Zeina Payne [Blood Pressure Monitor] 1 each MC DAILY #1 kit Labetalol HCl [Normodyne -] 300 mg PO BID #60 tablet 07/21/19 Nifedipine ER [Procardia XL -] 60 mg PO DAILY #30 tab.er.24 11/19/19 Problem List - Problems (1) Hypercholesterolemia Code(s): E78.00 - PURE HYPERCHOLESTEROLEMIA, UNSPECIFIED (2) Hypertensive emergency Code(s): I16.1 - HYPERTENSIVE EMERGENCY (3) Shortness of breath Code(s): R06.02 - SHORTNESS OF BREATH This patient is new to me today: No Emergency Visit: No Critical Care patient: No - Discharge Referral Referred to [facility] No
--- NOTE | 2019-07-21 16:02 | PN ---
Teaching Attending Note Name of Resident: Eric Dumont ATTENDING PHYSICIAN STATEMENT I saw and evaluated the patient. I reviewed the resident's note and discussed the case with the resident. I agree with the resident's findings and plan as documented. SUBJECTIVE: No chest pain/palpitations/lightheadedness/nausea/vomiting/headache. OBJECTIVE: Afebrile, hemodynamically Stable Last Vital Signs Temp Pulse Resp BP Pulse Ox 98.8 F 100 H 20 154/96 97 07/21/19 10:00 07/21/19 10:00 07/21/19 10:00 07/21/19 10:00 07/21/19 09:00 HEENt - Atramatic, Normocephalic. Heart -S1, S2, RRR Lungs - clear to auscultation Abdomen - High BMI. Soft, non-tender. Bowel Sounds normal. Extremities - no calf tenderness. Laboratory Results - last 24 hr 07/20/19 07/20/19 07/20/19 16:03 16:03 16:03 WBC RBC Hgb Hct MCV MCH MCHC RDW Plt Count MPV Sodium Potassium Chloride Carbon Dioxide Anion Gap BUN Creatinine Est GFR (CKD-EPI)AfAm Est GFR (CKD-EPI)NonAf Random Glucose Calcium Triglycerides Cholesterol Total LDL Cholesterol HDL Cholesterol Urine Osmolality 375 D Ur Random Creatinine 118.0 Ur Random Sodium Cancelled 50 Ur Random Potassium Cancelled 31.0 Ur Random Chloride Cancelled 31 L 07/21/19 07/21/19 06:00 06:00 WBC 10.6 H RBC 4.92 Hgb 14.0 Hct 41.8 MCV 85.0 MCH 28.4 MCHC 33.4 RDW 16.0 H Plt Count 328 MPV 7.8 Sodium 139 Potassium 3.7 Chloride 103 Carbon Dioxide 28 Anion Gap 7 L BUN 17.9 Creatinine 1.9 H Est GFR (CKD-EPI)AfAm 48.27 Est GFR (CKD-EPI)NonAf 41.65 Random Glucose 106 Calcium 9.3 Triglycerides 182 H Cholesterol 259 H Total LDL Cholesterol 174 H HDL Cholesterol 40 Urine Osmolality Ur Random Creatinine Ur Random Sodium Ur Random Potassium Ur Random Chloride Discharge Medications Medication Instructions Recorded Atorvastatin Ca [Lipitor] 10 mg PO HS #30 tablet 07/21/19 Blood Pressure Kit Med,Large 1 each MC DAILY #1 kit 07/21/19 [Blood Pressure Monitor] Labetalol HCl [Normodyne -] 300 mg PO BID #60 tablet 07/21/19 Nifedipine ER [Procardia XL -] 60 mg PO DAILY #30 tab.er.24 07/21/19 ASSESSMENT AND PLAN: 44 year old male with history of HTN, HLD, non-compliant, no follow up in 2 years, admitted with dyspnea, orthopnea, noted to have elevated BP, elevated troponin and creatinine. 1. Hypertensive Emergency Weaned off Nitro drip. Started on Labetolol and Nifedipine. BP stable. follow up with PCP and cardiolofy as out-patient. 2. CKD 3 - Stable. renal imaging negative. Follow up with Nephrology as out- patient. 3. Chronic Diastolic CHF - Grade II on Echo. Stable. Cardio follow up o discharge. 4. HLD - Continue Lipitor. Medically optimized for discharge.
[2019-07-21] MEDS ORDERED: LABETALOL HCL 100 MG TABLET (FP) PO SCH (22:00)
== END 2019-07-21 15:26 | disposition home or self-care (01) | DRG 305 ==
LOC: JER 15:58 → JICU 18:14 → JERBED 07-20 00:30 → J4W 07-20 20:36
PROVIDERS: ADMIT Internal Medicine
DX: I16.1 Hypertensive emergency (principal); N17.9 Acute kidney failure, unspecified; I50.32 Chronic diastolic (congestive) heart failure; I13.0 Hypertensive heart and chronic kidney disease with heart failure and stage 1 through stage 4 chronic kidney disease, or unspecified chronic kidney disease; N18.3 Chronic kidney disease, stage 3 (moderate); E78.5 Hyperlipidemia, unspecified; Z91.14 Patient's other noncompliance with medication regimen; D72.829 Elevated white blood cell count, unspecified; E66.9 Obesity, unspecified; Z68.35 Body mass index [BMI] 35.0-35.9, adult
CPT/HCPCS: 36415; 71045-TC-FY; 76775-TC; 76856-TC; 80048; 80053; 80061; 81003; 82436; 82550; 82553; 82565; 82570; 83036; 83721; 83735; 83880; 83930; 83935; 84100; 84133; 84156; 84300; 84443; 84484; 85025; 85027; 85610; 93005; 93010; 93306-TC; 99285-25; J1644; Q2036

== ENCOUNTER 2019-07-25 17:53 | Emergency (ER) | payer BC ==
[2019-07-25 18:00] VITALS: BMI 34.9
--- NOTE | 2019-07-25 20:34 | PDOC ---
History of Present Illness - General Chief Complaint: Lightheaded Stated Complaint: POSITIONAL DIZZINESS Time Seen by Provider: 07/25/19 19:39 - History of Present Illness Initial Comments: 07/25/19 20:23 HPI: 44 y/o M with hx of HTN and HLD recently DCd 4 days ago following admission for hypertensive emergency initially requiring ICU admission and nitro drip presenting with 4 days of intermittent LH and SOB on exertion. He states that usually his symptoms usually occur when getting out of bed or on exertion. Because of his symptoms he also reported generalized weakness but denies any focal deficits, slurred speech, [place]. He also states feeling unsteady when walking but no LOC or falls. He denies chest pain, palpitations, [place], vision changes, vertigo, abd pain, n/v, diaphoresis, numbness/tingling. He reports taking his meds as prescribed since DC PMHx: as noted above ROS: as noted SHx: Denies tobacco use; no alcohol use; no rec drugs Allergies: NKDA ROS: GENERAL/CONSTITUTIONAL: No fever or chills. +generalized weakness. HEAD, EYES, EARS, NOSE AND THROAT: No change in vision. No ear pain or discharge. No sore throat. CARDIOVASCULAR: +shortness of breath RESPIRATORY: No cough, wheezing, or hemoptysis. GASTROINTESTINAL: No nausea, vomiting, diarrhea or constipation. GENITOURINARY: No dysuria, frequency, or change in urination. MUSCULOSKELETAL: No joint or muscle swelling or pain. No neck or back pain. SKIN: No rash NEUROLOGIC: No headache, vertigo, loss of consciousness, or change in strength/ sensation. ENDOCRINE: No increased thirst. No abnormal weight change HEMATOLOGIC/LYMPHATIC: No anemia, easy bleeding, or history of blood clots. ALLERGIC/IMMUNOLOGIC: No hives or skin allergy. PE: GENERAL: Awake, alert, and fully oriented, no acute distress HEAD: No signs of trauma, normocephalic, atraumatic EYES: EOMI, sclera anicteric, conjunctiva clear ENT: Auricles normal inspection, hearing grossly normal, nares patent, oropharynx clear without exudates. Moist mucosa NECK: Normal ROM, no lymphadenopathy LUNGS: No increased work of breathing, symmetrical chest rise, clear to auscultation bilaterally, no wheezes, crackles or rhonchi HEART: Regular rate and rhythm, normal S1 and S2, no murmurs, peripheral pulses 2+ and equal bilaterally. ABDOMEN: Soft, nondistended, nontender, normoactive bowel sounds. No guarding, no rebound. No masses. No CVAT EXTREMITIES: Normal inspection, Normal range of motion, no edema. No clubbing or cyanosis. NEUROLOGICAL: Cranial nerves II through XII grossly intact. Normal speech, normal gait, no focal sensorimotor deficits SKIN: Warm, Dry, normal turgor, no rashes or lesions noted Past History - Past Medical History Allergies/Adverse Reactions: Allergies Allergy/AdvReac Type Severity Reaction Status Date / Time Penicillins Allergy Verified 07/25/19 18:00 Home Medications: Ambulatory Orders Atorvastatin Ca [Lipitor] 10 mg PO HS #30 tablet 07/21/19 Blood Pressure Kit Med,Large [Blood Pressure Monitor] 1 each MC DAILY #1 kit Labetalol HCl [Normodyne -] 300 mg PO BID #60 tablet 07/21/19 Nifedipine ER [Procardia XL -] 60 mg PO DAILY #30 tab.er.24 07/21/19 COPD: No HTN: Yes - Psycho Social/Smoking Cessation Hx Smoking Status: No Smoking History: Never smoked Have you smoked in the past 12 months: No Number of Cigarettes Smoked Daily: 0 Hx Alcohol Use: No Drug/Substance Use Hx: No *Physical Exam - Vital Signs Last Vital Signs Temp Pulse Resp BP Pulse Ox 99.1 F 101 H 18 168/94 99 07/25/19 17:57 07/25/19 17:57 07/25/19 17:57 07/25/19 17:57 07/25/19 17:57 ED Treatment Course - LABORATORY CBC & Chemistry Diagram: 07/25/19 20:30 07/25/19 20:30 Medical Decision Making - Medical Decision Making 07/25/19 23:39 44 y/o M with hx of HTN and HLD recently DCd 4 days ago following admission for hypertensive emergency initially requiring ICU admission and nitro drip presenting with 4 days of intermittent LH and SOB on exertion associated with generalized weakness. BP 168/94 HR 101. PE unremarkable -cbc, cmp, trops, ekg 07/25/19 23:41 Cr stable at 2.2 from previous visit; trop negative ekg unchanged from last visit WBC mildly elevated patient unlikely to be having cardiac event will dc home with close followup discussed with patient results and he is comfortable with dc home Discharge - Discharge Information Problems reviewed: Yes Clinical Impression/Diagnosis: Lightheadedness, Shortness of breath Condition: Stable Disposition: HOME - Follow up/Referral Referrals: Ramon Hernadez RES [Primary Care Provider] - - Patient Discharge Instructions Patient Printed Discharge Instructions: Essential Hypertension Additional Instructions: Return to the ED if you have new or worsening symptoms including severe chest pain, worsening shortness of breath, fainting. Please continue to take your medications as prescribed Please followup with your PCP appointment that was set up as well as with your specialists You may return to work on Saturday, 07/29 - Post Discharge Activity Work/Back to School Note: Back to Work
[2019-07-25 21:10] LABS: BASO % 0.7 % (0-2.0); EOS % 0.6 % (0-4.5); HEMATOCRIT 40.7 % (35.4-49); HEMOGLOBIN 13.7 GM/dL (11.7-16.9); LYMPH % 10.8 % (8-40); MCH 28.8 pg (25.7-33.7); MCHC 33.8 g/dl (32.0-35.9); MEAN CELL VOLUME 85.4 fl (80-96); MONO % 10.7 % (3.8-10.2); NEUT % 77.2 % (42.8-82.8); PLATELET COUNT 421 K/MM3 (134-434); RBC 4.76 M/mm3 (4.00-5.60); RDW 16.1 % (11.9-15.9); WHITE BLOOD COUNT 14.1 K/mm3 (4.0-10.0)
[2019-07-25 21:42] LABS: ALBUMIN 3.5 g/dl (3.4-5.0); BILIRUBIN,TOTAL 0.6 mg/dL (0.2-1); BLOOD UREA NITROGEN 22.4 mg/dL (7-18); CALCIUM 9.1 mg/dL (8.5-10.1); CREATININE 2.2 mg/dL (0.55-1.3); POTASSIUM 4.3 mmol/L (3.5-5.1)
[2019-07-25 22:39] VITALS: TEMP 98
[2019-07-25 22:41] VITALS: BP 164/96; PULSE 88
--- NOTE | 2019-07-26 13:38 | EKG ---
Test Reason : Blood Pressure : / mmHG Vent. Rate : 093 BPM Atrial Rate : 093 BPM P-R Int : 140 ms QRS Dur : 094 ms QT Int : 364 ms P-R-T Axes : 049 019 217 degrees QTc Int : 452 ms NORMAL SINUS RHYTHM POSSIBLE LEFT ATRIAL ENLARGEMENT T WAVE ABNORMALITY, CONSIDER INFEROLATERAL ISCHEMIA ABNORMAL ECG WHEN COMPARED WITH ECG OF 20-JUL-2019 14:11, PREMATURE VENTRICULAR COMPLEXES ARE NO LONGER PRESENT PREMATURE SUPRAVENTRICULAR COMPLEXES ARE NO LONGER PRESENT Confirmed by MD Smiley, Rk ([id number]) on 07/26/2019 1:37:58 PM Referred By: Confirmed By:Rk Reis MD
== END 2019-07-25 22:35 | disposition home or self-care (01) ==
LOC: JER 17:53
DX: R42 Dizziness and giddiness (principal); R06.02 Shortness of breath; I10 Essential (primary) hypertension; E78.5 Hyperlipidemia, unspecified; Z88.0 Allergy status to penicillin
CPT/HCPCS: 36415; 80053; 84484; 85025; 93005; 93010; 99283-25

== ENCOUNTER 2024-08-15 23:57 | Emergency (ER) | payer OTHER ==
[2024-08-16 00:11] VITALS: BP 186/76; PULSE 92; RESP 16; TEMP 97.8; BMI 37.5
[2024-08-16] MEDS ORDERED: ACETAMINOPHEN 325 MG TABLET (FP) ONE (00:41)
[2024-08-16] MEDS: ACETAMINOPHEN 500 MG TABLET (FP) PO ONE (00:43)
== END 2024-08-16 02:34 | disposition home or self-care (01) ==
LOC: JER 23:57
DX: M79.671 Pain in right foot (principal)
CPT/HCPCS: 73610-TC-RT-FY; 73630-TC-RT-FY; 99283-25